=== PATIENT | male | born 1940 | race Caucasian/White ===

== ENCOUNTER 2018-11-29 18:31 | Emergency (ER) | payer MEDICARE, SELFPAY ==
[2018-11-29 18:32] VITALS: BP 156/78; PULSE 111; RESP 16; TEMP 36.6; O2SAT 98; BMI 21.7
--- NOTE | 2018-11-29 19:13 | ED.DCSUM_ITS ---
- ER Visit Summary Date of Service: 11/29/18 Chief Complaint: Shingles History of Present Illness: The patient is a 78 M who presents complaining of shingles. Patient states that he was outside shoveling snow today. When he came inside he began having very itchy rash that he describes as shingles. He is having itching around his neck, bilateral armpits, chest, back. He states that he had shingles 4 years ago and has it intermittently. He was once put on a medication by Dr. Llanes that he thinks was prednisone but it made him feel crazy. Patient denies any fever, chest pain, shortness of breath, cough, wheezing, abdominal pain, nausea or vomiting, lightheadedness or dizziness, or any other complaints other than the rash. He states he did have a brief 1 hour episode of the rash last night that resolved. It came back this afternoon. Patient has history of hypertension and high cholesterol. Physical Examination: Vital signs: afebrile, hemodynamically stable, no hypoxia on room air General: well nourished, well developed, in no distress Skin: warm, dry, no pallor, urticarial rash on the chest, back, base of the neck, bilateral arms, bilateral legs, abdomen, sparing the face, palms and soles HEENT: normocephalic and atraumatic; PERRL, EOMI, moist mucous membranes Cardiovascular: regular rate and rhythm without murmurs, no peripheral edema, 2+ pulses all distal extremities Respiratory: No increased work of breathing, lungs are clear to auscultation bilaterally, no rales, rhonchi or wheezing Abdominal: Abdomen is soft, nontender with normoactive bowel sounds, no guarding or rebound, no masses MSK: Moves all extremities, no deformities, normal strength Neuro: Awake and alert, oriented ?4. No facial droop, sensation and motor function intact and symmetric Test Results: [] Emergency Department Course and Treatment: Patient's physical examination is most consistent with urticaria of unknown cause. Patient states he has had a bad reaction to prednisone in the past, thus prednisone not given. He has an appointment with Dr. Llanes at 11 AM tomorrow. Thus patient was given a home dose of Benadryl to take when he gets home tonight, with very specific precautions since it may make him sleepy, dizzy or feel loopy. He will not take any in the morning as he has to drive to his doctor's appointment. Patient not given a dose in the emergency department as he is driving home from here as well. Patient has no findings concerning for anaphylactic reaction. Further treatment will be pending evaluation by Dr. Llanes. Patient agreed with this plan was discharged home. Treatment Plan: [] Disposition: [] Impression: Urticarial rash This note was generated with [employer] dictation software. It may contain incorrect words, spelling, and punctuation that were not noted in review of the chart prior to signing ED Disposition - Plan for ED Patient: Disposition: Home or Assisted Living Chief Complaint: Rash Instructions: ED Urticaria Referrals: Clement Llanes III, MD [Primary Care Provider] - 1 Day Additional Instructions: You may take a dose of Benadryl prior to going to bed tonight. This will help with itching. It may make you sleepy or dizzy, so be very careful if you get out of bed to walk around. Do not drive or do any other activities that would be dangerous while taking this medication. Keep your appointment with Dr. Llanes tomorrow morning. If you develop any trouble breathing, dizziness or lightheadedness, abdominal pain, nausea or vomiting, or any other concerning symptoms, return immediately to the emergency department for another evaluation.
[2018-11-29 19:22] VITALS: RESP 18
[2018-11-29] MEDS: DiphenhydrAMINE 25 MG Capsule PO ×2 (19:22)
--- OUTSIDE RECORDS SUMMARY | 2019-02-01 05:25 | XMS RPT_ITS ---
:1940 Author Organization [facility] Care Team Providers Name Role Phone CLEMENT LLANES III Referring Unavailable CEBUL III, CLEMENT Villeda Attending Unavailable CEBUL III, CLEMENT Villeda Referring Unavailable CEBUL III, CLEMENT Villeda Referring Unavailable CEBUL III, CLEMENT Villeda Attending Unavailable CEBUL III, CLEMENT Villeda Referring Unavailable CEBUL III, CLEMENT Villeda Referring Unavailable CEBUL III, CLEMENT Villeda Referring Unavailable Cebul III, Clement Primary Care Unavailable Lelo Ivory Attending Unavailable PROBLEMS PROBLEMS DATE TYPE CONDITION / CODE ATTENDING STATUS SOURCE 12/01/2018 Active Thyrotoxicosis, 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 [facility] [employer] without thyrotoxic Repository crisis or storm / E05.90(ICD-10) 11/30/2018 Active Tachycardia, NA 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 / [facility] [employer] R00.0(ICD-10) Repository 12/22/2016 Active Essential NA Active [facility] (primary) [facility] [employer] hypertension / Repository I10(ICD-10) 05/21/2015 Active Hyperlipidemia, NA 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 / [facility] [employer] E78.5(ICD-10) Repository PROCEDURES PROCEDURES No Procedure Records FoundRESULTS RESULTS PROGRESS Observed: 12/02/2018 Status: COMPLETED Source: [facility] 7:21 PM [facility] RE[facility]IT[facility] HNO ID: [id number] Author: Clement Llanes III Service: (none) Author Type: Physician Type: Progress Notes Filed: 12/02/2018 7:21 PM Note Text: The very high T3 confirms the presence of hyperthyroidism. This likely is causing rapid heartbeat. The metoprolol should help to control the heart rate. Await the results of the thyroid scan. Clement Llanes III, MD, FAAFP PROGRESS Observed: 12/01/2018 Status: COMPLETED Source: [place] 2:38 PM [facility] REPOSITORY HNO ID: [id number] Author: Clement Llanes III Service: (none) Author Type: Physician Type: Progress Notes Filed: 12/01/2018 2:38 PM Note Text: This is very concerning for the diagnosis of hyperthyroidism. I will order a serum T3 and also thyroid scan. SHABNAM Li MD Observed: 12/01/2018 Status: COMPLETED Source: [facility] 12:00 AM [facility]IT[facility] MANUEL LAWRENCE ([id number]) 1940 M Date Time Provider Department 12/01/18 ZARIA HAQUE, CLEMENT [facility]illeda [facility] During your visit today, we recorded the following information about you: Camille Hall CMA, MA 12/01/2018 4:38 PM Signed ----- Message from Clement Llanes III sent at 12/01/2018 2:38 PM EST ----- This is very concerning for the diagnosis of hyperthyroidism. I will order a serum T3 and also thyroid scan. SHABNAM Li MD, CMA, MA 12/01/2018 4:44 PM Signed Detailed message left for patient. Information sent to [facility]. AALIYAH Duran LPN 12/02/2018 9:28 AM Signed Pt called back to go over information. Reviewed below with pt and advised him this nurse would set up appt at [facility] for him. Called pt back to inform him appt is 12/06/18 at 9:15 for the injection and he must return at 1:15 for the scan then go back 12/07/18 at 8:45 for second scan. Pt verbalizes understanding of instructions. Pt will come to lab today to complete lab work. Saul New LPN Allergies As of Date: 12/01/2018 Noted Allergy Reaction NO KNOWN DRUG ALLERGIES 11/04/2005 Date Reviewed: 11/30/2018 Reviewed by: Bhavana France Ma - Fully Assessed Reason for Visit: Results [95] Prescriptions as of 12/01/2018 Sig: METOPROLOL SUCCINATE ER 25 MG* Take 1 tablet by mouth once d* ATORVASTATIN 40 MG TABLET Take 1 tablet by mouth once d* LISINOPRIL 10 MG-HYDROCHLOROT* Take 1 tablet by mouth every * ASPIRIN 81 MG TABLET,DELAYED * Take 1 tablet by mouth once d* Problem List As Of Date 12/01/2018 Noted Resolved Disorders of bursae and tendons in shoulder reg*INVALID FOR*10/18/2015 Tobacco abuse [Z72.0] INVALID FOR* Hyperlipidemia LDL goal <130 [E78.5] INVALID FOR* Arteriosclerosis of carotid artery [I65.29] INVALID FOR* HZV (herpes zoster virus) post herpetic neuralg*INVALID FOR* Benign hypertension [I10] 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 [Z79.82] INVALID FOR* Weakness [R53.1] INVALID FOR*02/04/2018 Encounter Status:Closed by CAMILLE HALL CMA on 12/01/18 FREE T4 Collected: 11/30/2018 Status: F Source: [place] 11:58 AM [facility] REPOSITORY TYPE CODE TESTS RESULT OUT OF RANGE REFERENCE UNITS LAB FT4 0.9-1.7 ng/dL Free T4 1.7 Performed By: #### FT4, TSH #### [facility] [employer] [address] [id number] TSH Collected: 11/30/2018 Status: F Source: [facility] 11:58 AM [facility] REPOSITORY TYPE CODE TESTS RESULT OUT OF RANGE REFERENCE UNITS LAB TSH 0.400-5.500 uU/mL Low TSH 0.009 Performed By: #### FT4, TSH #### [facility] [employer] [address] [address] T3 Collected: 11/30/2018 Status: F Source: [facility] 11:58 AM [facility] REPOSITORY TYPE CODE TESTS RESULT OUT OF RANGE REFERENCE UNITS LAB T3 79-165 ng/dL High T3 182 Performed By: #### T3 #### [facility] [address] [place], [place] [address] EKG1 Observed: 11/30/2018 Status: F Source: [facility] 11:26 AM [facility] REPOSITORY NAME : MANUEL LAWRENCE PID : [id number] : 1940 Gender : Male Race : ORD : Procedure Date : Nov 30 2018 11:26:23 Edit Date : Dec 01 2018 08:35:35 Diagnosis:SINUS TACHYCARDIA OTHERWISE NORMAL ECG Confirmed by MD CHAWLA GREGORY () on 12/01/2018 8:35:28 AM Ventricular Rate : 113 BPM Atrial Rate : 113 BPM P-R Interval : 144 ms QRS Duration : 78 ms Q-T Interval : 306 ms QTC Calculation(Bezet) : 419 ms P [place] : 83 degrees R [place] : 21 degrees T [place] : 66 degrees Test Reason : Location : 185 : [facility] Overread By : MD CHAWLA GREGORY Edited By : MD CHAWLA GREGORY Referred By : CLEMENT LLANES Acquired by : AUSTIN CAMARGO Observed: 11/30/2018 Status: COMPLETED Source: [place] 11:00 AM [facility] REPOSITORY Office Visit ([facility]) MANUEL LAWRENCE ([id number]) 1940 M Date Time Provider Department 11/30/18 11:00 AM LCEMENT LLANES III [facility] During your visit today, we recorded the following information about you: Temperature Pulse Respiration Blood pressure 96.9 degrees 120/minute 12/minute 114/76 Weight Height 68 kg 1.74 m Clement Llanes III MD 11/30/2018 11:45 AM Signed SUBJECTIVE: Chief Complaint: Manuel Lawrence is a 78 year old male who presents for annual comprehensive problem evaluation. New concerns today include 1. hypertension 2. hyperlipidemia 3. yesterday he developed pruritic, generalized, pinpoint red macular eruption on torso, extremities. Seen in ER with dx of nerves. Given benadryl 25mg which resolved the itch and the rash, though it caused a foul taste. Reviewed ER visit note. VS reported as normal. 4. notes tremor in hands for several yrs. Notes mostly in R hand. 5. rapid heart rate noted on exam today. Pt had 2 cups coffee prior to office visit 6. tobacco use disorder--smokes 1 pack /wk. Not ready to commit to quit Exercises regularly Minimal exercise associated with work or ADL's Cholesterol screening up to date Yes Current Outpatient Prescriptions on File Prior to Visit: atorvastatin (LIPITOR) 40 mg tablet TAKE ONE TABLET BY MOUTH ONCE DAILY lisinopril-hydrochlorothiazide (PRINZIDE,ZESTORETIC) 10-12.5 mg per tablet TAKE ONE TABLET BY MOUTH EVERY MORNING aspirin, enteric coated (ASPIRIN, ENTERIC COATED) 81 mg EC tablet Take 1 tablet by mouth once daily. No current facility-administered medications on file prior to visit. PAST MEDICAL HISTORY Diagnosis Date - Arteriosclerosis of carotid artery 05/25/2015 - Tobacco abuse 08/16/2012 PAST SURGICAL HISTORY Procedure Laterality Date - INSERT CATH,ART,PERCUT,SHORTTERM - PAST SURGICAL HISTORY OF 1969? Ruptured sweat gland right upper eyelid - REPAIR ING HERNIA,5+Y/O,REDUCIBL Hernia repair, inguinal, right - THROMBOENDARTECTMY NECK,NECK INCIS Right 06-18-15 FAMILY HISTORY Problem Relation Age of Onset - Cataract Father - Cancer Father bladder cancer - Cancer Brother lung cancer - Breast Cancer Sister - other (endometrial cancer [Other]) Sister Social History Marital status: Spouse name: Years of education: Number of children: Social History Main Topics Smoking status: Current Every Day Smoker Packs/day: 0.50 Years: 50.00 Types: Cigarettes Start date: 06/05/2010 Smokeless tobacco: Never Used Comment: smokes 1 pk. a week Alcohol use: Yes Comment: rare Drug use: No Immunization History Administered Date(s) Administered Influenza Seasonal Inj Quadrivalent Age 3+ 09/11/2017 Pneumococcal-13 Vac Conjugate 05/21/2015 Pneumovax 03/19/2011 Zostavax 10/18/2015 ACTIVE PROBLEM LIST Tobacco Abuse Hyperlipidemia Ldl Goal <130 Arteriosclerosis of Carotid Artery Hzv (Herpes Zoster Virus) Post Herpetic Neuralgia Benign Hypertension Custodial (Current) Use of Aspirin REVIEW OF SYSTEMS General: Denies fever, chills, night sweats, or changes in weight. Dermatologic: Denies any new skin conditions, rashes or changing moles. Eyes: ENT: Respiratory: Denies any cough, dyspnea, or wheezing. Cardiovascular: Denies any chest pain with exertion or at rest, palpitations, syncope, or edema. Gastrointestinal: Denies any nausea, vomiting, abdominal pain, heartburn, changes in bowel habit, Denies any rectal bleeding. Genitourinary: Denies Denies problems with urinary stream., Denies dysuria, frequency, urgency, incontinence, erectile dysfunction, hematuria and nocturia. Musculoskeletal: Denies any joint swelling, crepitus, joint pain, or loss of range of motion., Denies back pain. Neurologic: Denies any headaches, tremors, dizziness, vertigo, memory loss, confusion., Denies weakness, numbness or tingling. Psychiatric: Denies any sleeping problems, history of abuse, marital discord., Denies any anxiety or depression. Hematologic/Lymphatic/Immunologic: Denies anemia, bruising, bleeding abnormalities. Endocrine: Denies any heat or cold intolerance, polyuria or polydipsia. OBJECTIVE: PHYSICAL EXAMINATION: BP 114/76 Pulse 120 Temp 36.1 ?C (96.9 ?F) (Left Tympanic) Resp 12 Ht 174 cm (5' 8.5) Wt 68 kg (150 lb) BMI 22.47 kg/m? GENERAL APPEARANCE Well appearing, alert, in no acute distress, well-hydrated, well nourished. SKIN: Skin color, texture, turgor normal, no suspicious rashes or lesions HEAD: No significant findings. EYES: EARS: NOSE/SINUSES: OROPHARYNX: NECK: Supple, no lymphadenopathy, normal thyroid, no carotid bruits and no JVD BACK: Back symmetric, Normal curvature, No CVAT. LUNGS: normal pulmonary exam and clear to auscultation and percussion HEART: Normal PMI, Regular rate and rhythm, Normal heart sounds, S1 and S2 and No murmurs. BREASTS: ABDOMEN: Soft, Non-tender, No palpable masses and No hepatosplenomegaly. EXTREMTIES: extremities normal, no deformities, no skin discoloration, no edema, normal pulses bilaterally. NEURO: Awake, alert and oriented x 3, Normal gait, No involuntary motions., muscle tone normal, muscle strength normal GENITALIA: Penis normal, no urethral discharge, scrotum normal to palpation, no hernias RECTAL: Anus normal, no anorectal masses, Prostate normal size, consistency, no nodules, and no tenderness, prostate 3/4 spongy, smooth ASSESSMENT: hypertension--at goal prickly heat--resolving hyperlipidemia sinus tachycardia--?due to coffee essential tremor dry skin tobacco use disorder PLAN: healthy diet and stay active use moisturizing cream to dry skin add toprol XL 25mg daily same other medications nurse visit in 2 wks --check BP and pulse labs as ordered SHABNAM Li MD, III MD 11/30/2018 11:44 AM Signed PLAN: healthy diet and stay active use moisturizing cream to dry skin add toprol XL 25mg daily same other medications nurse visit in 2 wks --check BP and pulse Clement Llanes III MD Referring Provider: SELF [200] Allergies As of Date: 11/30/2018 Noted Allergy Reaction NO KNOWN DRUG ALLERGIES 11/04/2005 Date Reviewed: 11/30/2018 Reviewed by: Bhavana France Ma - Fully Assessed Reason for Visit: Yearly Exam [187] Primary Visit Diagnosis:Sinus tachycardia [R00.0] Other Visit Diagnoses:Tachycardia [R00.0] Benign hypertension [I10] Hyperlipidemia LDL goal <130 [E78.5] Benign essential tremor [G25.0] Prickly heat [L74.0] Tobacco abuse [Z72.0] Order(s):ECG COMPLETE W INTERPRETATION [ECG01] Order #: [id number] FUTURE COMPLETE ECG [7046397] Order #: [id number]. #:[id number]--[id number]: 1 metoprolol succinate ER (TOPROL XL) 25 mg 24 hr tabletTake 1 tablet by mouth once daily.Disp: 30 tabletRfl: 11 atorvastatin (LIPITOR) 40 mg tabletTake 1 tablet by mouth once daily.Disp: 90 tabletRfl: 3 lisinopril-hydrochlorothiazide (PRINZIDE,ZESTORETIC) 10-12.5 mg per tabletTake 1 tablet by mouth every morning.Disp: 90 tabletRfl: 3 TSH BLD [SQTSH] Order #: [id number] FUTURE T4 FREE/FREE THYROX [SQFT4] Order #: [id number] FUTURE Prescriptions as of 11/30/2018 Sig: ATORVASTATIN 40 MG TABLET Take 1 tablet by mouth once d* LISINOPRIL 10 MG-HYDROCHLOROT* Take 1 tablet by mouth every * ASPIRIN 81 MG TABLET,DELAYED * Take 1 tablet by mouth once d* METOPROLOL SUCCINATE ER 25 MG* Take 1 tablet by mouth once d* Problem List As Of Date 11/30/2018 Noted Resolved Disorders of bursae and tendons in shoulder reg*INVALID FOR*10/18/2015 Tobacco abuse [Z72.0] INVALID FOR* Hyperlipidemia LDL goal <130 [E78.5] INVALID FOR* Arteriosclerosis of carotid artery [I65.29] INVALID FOR* HZV (herpes zoster virus) post herpetic neuralg*INVALID FOR* Benign hypertension [I10] INVALID FOR* senior care (current) use of aspirin [Z79.82] INVALID FOR* Weakness [R53.1] INVALID FOR*02/04/2018 Other instructions from your clinician: PLAN: healthy diet and stay active use moisturizing cream to dry skin add toprol XL 25mg daily same other medications nurse visit in 2 wks --check BP and pulse Clement Llanes III MD Prescriptions ordered this encounter Disp Refills Start End METOPROLOL SUCCINATE ER 25 MG TABLET* 30 t* 11 11/30/2018 Route: ORAL Sig: Take 1 tablet by mouth once daily. ATORVASTATIN 40 MG TABLET 90 t* 3 11/30/2018 Route: ORAL Sig: Take 1 tablet by mouth once daily. LISINOPRIL 10 MG-HYDROCHLOROTHIAZIDE* 90 t* 3 11/30/2018 Route: ORAL Sig: Take 1 tablet by mouth every morning. Medications Discontinued During This Encounter atorvastatin (LIPITOR) 40 mg tablet 90 t* 0 11/01/2018 11/30/2018 Cmt: This prescription was filled on 11/01/2018. Any refills authorized will be placed on file. Sig: TAKE ONE TABLET BY MOUTH ONCE DAILY Disc: Reason for discontinue is not on file. lisinopril-hydrochlorothiazide (PRIN* 30 t* 11 01/20/2018 11/30/2018 Sig: TAKE ONE TABLET BY MOUTH EVERY MORNING Disc: Reason for discontinue is not on file. Encounter Status:Closed by CLEMENT LLANES III, MD on 11/30/18 PROGRESS Observed: 11/30/2018 Status: COMPLETED Source: [place] 10:57 AM [facility] REPOSITORY HNO ID: [id number] Author: Clement Llanes III Service: (none) Author Type: Physician Type: Progress Notes Filed: 11/30/2018 11:45 AM Note Text: SUBJECTIVE: Chief Complaint: Manuel Lawrence is a 78 year old male who presents for annual comprehensive problem evaluation. New concerns today include 1. hypertension 2. hyperlipidemia 3. yesterday he developed pruritic, generalized, pinpoint red macular eruption on torso, extremities. Seen in ER with dx of nerves. Given benadryl 25mg which resolved the itch and the rash, though it caused a foul taste. Reviewed ER visit note. VS reported as normal. 4. notes tremor in hands for several yrs. Notes mostly in R hand. 5. rapid heart rate noted on exam today. Pt had 2 cups coffee prior to office visit 6. tobacco use disorder--smokes 1 pack /wk. Not ready to commit to quit Exercises regularly Minimal exercise associated with work or ADL's Cholesterol screening up to date Yes Current Outpatient Prescriptions on File Prior to Visit: atorvastatin (LIPITOR) 40 mg tablet TAKE ONE TABLET BY MOUTH ONCE DAILY lisinopril-hydrochlorothiazide (PRINZIDE,ZESTORETIC) 10-12.5 mg per tablet TAKE ONE TABLET BY MOUTH EVERY MORNING aspirin, enteric coated (ASPIRIN, ENTERIC COATED) 81 mg EC tablet Take 1 tablet by mouth once daily. No current facility-administered medications on file prior to visit. PAST MEDICAL HISTORY Diagnosis Date - Arteriosclerosis of carotid artery 05/25/2015 - Tobacco abuse 08/16/2012 PAST SURGICAL HISTORY Procedure Laterality Date - INSERT CATH,ART,PERCUT,SHORTTERM - PAST SURGICAL HISTORY OF 1969? Ruptured sweat gland right upper eyelid - REPAIR ING HERNIA,5+Y/O,REDUCIBL Hernia repair, inguinal, right - THROMBOENDARTECTMY NECK,NECK INCIS Right 8-10-15 FAMILY HISTORY Problem Relation Age of Onset - Cataract Father - Cancer Father bladder cancer - Cancer Brother lung cancer - Breast Cancer Sister - other (endometrial cancer [Other]) Sister Social History Marital status: Spouse name: Years of education: Number of children: Social History Main Topics Smoking status: Current Every Day Smoker Packs/day: 0.50 Years: 50.00 Types: Cigarettes Start date: 06/05/2010 Smokeless tobacco: Never Used Comment: smokes 1 pk. a week Alcohol use: Yes Comment: rare Drug use: No Immunization History Administered Date(s) Administered Influenza Seasonal Inj Quadrivalent Age 3+ 09/11/2017 Pneumococcal-13 Vac Conjugate 05/21/2015 Pneumovax 03/19/2011 Zostavax 10/18/2015 ACTIVE PROBLEM LIST Tobacco Abuse Hyperlipidemia Ldl Goal <130 Arteriosclerosis of Carotid Artery Hzv (Herpes Zoster Virus) Post Herpetic Neuralgia Benign Hypertension Custodial (Current) Use of Aspirin REVIEW OF SYSTEMS General: Denies fever, chills, night sweats, or changes in weight. Dermatologic: Denies any new skin conditions, rashes or changing moles. Eyes: ENT: Respiratory: Denies any cough, dyspnea, or wheezing. Cardiovascular: Denies any chest pain with exertion or at rest, palpitations, syncope, or edema. Gastrointestinal: Denies any nausea, vomiting, abdominal pain, heartburn, changes in bowel habit, Denies any rectal bleeding. Genitourinary: Denies Denies problems with urinary stream., Denies dysuria, frequency, urgency, incontinence, erectile dysfunction, hematuria and nocturia. Musculoskeletal: Denies any joint swelling, crepitus, joint pain, or loss of range of motion., Denies back pain. Neurologic: Denies any headaches, tremors, dizziness, vertigo, memory loss, confusion., Denies weakness, numbness or tingling. Psychiatric: Denies any sleeping problems, history of abuse, marital discord., Denies any anxiety or depression. Hematologic/Lymphatic/Immunologic: Denies anemia, bruising, bleeding abnormalities. Endocrine: Denies any heat or cold intolerance, polyuria or polydipsia. OBJECTIVE: PHYSICAL EXAMINATION: BP 114/76 Pulse 120 Temp 36.1 ?C (96.9 ?F) (Left Tympanic) Resp 12 Ht 174 cm (5' 8.5) Wt 68 kg (150 lb) BMI 22.47 kg/m? GENERAL APPEARANCE Well appearing, alert, in no acute distress, well-hydrated, well nourished. SKIN: Skin color, texture, turgor normal, no suspicious rashes or lesions HEAD: No significant findings. EYES: EARS: NOSE/SINUSES: OROPHARYNX: NECK: Supple, no lymphadenopathy, normal thyroid, no carotid bruits and no JVD BACK: Back symmetric, Normal curvature, No CVAT. LUNGS: normal pulmonary exam and clear to auscultation and percussion HEART: Normal PMI, Regular rate and rhythm, Normal heart sounds, S1 and S2 and No murmurs. BREASTS: ABDOMEN: Soft, Non-tender, No palpable masses and No hepatosplenomegaly. EXTREMTIES: extremities normal, no deformities, no skin discoloration, no edema, normal pulses bilaterally. NEURO: Awake, alert and oriented x 3, Normal gait, No involuntary motions., muscle tone normal, muscle strength normal GENITALIA: Penis normal, no urethral discharge, scrotum normal to palpation, no hernias RECTAL: Anus normal, no anorectal masses, Prostate normal size, consistency, no nodules, and no tenderness, prostate 3/4 spongy, smooth ASSESSMENT: hypertension--at goal prickly heat--resolving hyperlipidemia sinus tachycardia--?due to coffee essential tremor dry skin tobacco use disorder PLAN: healthy diet and stay active use moisturizing cream to dry skin add toprol XL 25mg daily same other medications nurse visit in 2 wks --check BP and pulse labs as ordered Clement Llanes III MD EMERGENCY DEPARTMENT Observed: 11/29/2018 Status: F Source: [place] SUMMARY 9:12 PM [facility] REPOSITORY [facility] Medical Records Department [address] [place] [address] Emergency Department Summary 11/29/181909 MR#: [id number] Acct: [id number] Name: MANUEL LAWRENCE Rep #: [id number] : 1940 78 From: Lelo Ivory MD PCP: Clement Llanes III, MD Status: DEP ER - ER Visit Summary Date of Service: 11/29/18 Chief Complaint: Shingles History of Present Illness: The patient is a 78 M who presents complaining of shingles. Patient states that he was outside shoveling snow today. When he came inside he began having very itchy rash that he describes as shingles. He is having itching around his neck, bilateral armpits, chest, back. He states that he had shingles 4 years ago and has it intermittently. He was once put on a medication by Dr. Llanes that he thinks was prednisone but it made him feel crazy. Patient denies any fever, chest pain, shortness of breath, cough, wheezing, abdominal pain, nausea or vomiting, lightheadedness or dizziness, or any other complaints other than the rash. He states he did have a brief 1 hour episode of the rash last night that resolved. It came back this afternoon. Patient has history of hypertension and high cholesterol. Physical Examination: Vital signs: afebrile, hemodynamically stable, no hypoxia on room air General: well nourished, well developed, in no distress Skin: warm, dry, no pallor, urticarial rash on the chest, back, base of the neck, bilateral arms, bilateral legs, abdomen, sparing the face, palms and soles HEENT: normocephalic and atraumatic; PERRL, EOMI, moist mucous membranes Cardiovascular: regular rate and rhythm without murmurs, no peripheral edema, 2+ pulses all distal extremities Respiratory: No increased work of breathing, lungs are clear to auscultation bilaterally, no rales, rhonchi or wheezing Abdominal: Abdomen is soft, nontender with normoactive bowel sounds, no guarding or rebound, no masses MSK: Moves all extremities, no deformities, normal strength Neuro: Awake and alert, oriented 4. No facial droop, sensation and motor function intact and symmetric Test Results: [] Emergency Department Course and Treatment: Patient's physical examination is most consistent with urticaria of unknown cause. Patient states he has had a bad reaction to prednisone in the past, thus prednisone not given. He has an appointment with Dr. Llanes at 11 AM tomorrow. Thus patient was given a home dose of Benadryl to take when he gets home tonight, with very specific precautions since it may make him sleepy, dizzy or feel loopy. He will not take any in the morning as he has to drive to his doctor's appointment. Patient not given a dose in the emergency department as he is driving home from here as well. Patient has no findings concerning for anaphylactic reaction. Further treatment will be pending evaluation by Dr. Llanes. Patient agreed with this plan was discharged home. Treatment Plan: [] Disposition: [] Impression: Urticarial rash This note was generated with [employer] dictation software. It may contain incorrect words, spelling, and punctuation that were not noted in review of the chart prior to signing ED Disposition - Plan for ED Patient: Disposition: Home or Assisted Living Chief Complaint: Rash Instructions: ED Urticaria Referrals: Clement Llanes III, MD [Primary Care Provider] - 1 Day Additional Instructions: You may take a dose of Benadryl prior to going to bed tonight. This will help with itching. It may make you sleepy or dizzy, so be very careful if you get out of bed to walk around. Do not drive or do any other activities that would be dangerous while taking this medication. Keep your appointment with Dr. Llanes tomorrow morning. If you develop any trouble breathing, dizziness or lightheadedness, abdominal pain, nausea or vomiting, or any other concerning symptoms, return immediately to the emergency department for another evaluation. What to do if you have Problems For any increased pain, shortness of breath, bleeding, nausea or vomiting, chest pain, or any unexpected problems, contact your Primary Care Provider. Call [facility] ([phone]) or report to the closest Emergency Room. Call 911 if necessary. 11/29/182111 <Electronically signed by Lelo Ivory MD> Date Lelo Ivory MD Cosigner Signature (If Indicated): Date CC: Clement Llanes III, MD DISCHARGE INSTRUCTION Observed: 11/29/2018 Status: F Source: [place] 9:10 PM [facility] REPOSITORY [facility] Medical Records Department [address] [place] [address] Discharge Instruction 11/29/181912 MR#: [id number] Acct: [id number] Name: MANUEL LAWRENCE Rep #: [id number] : 1940 78 From: Lelo Ivory MD PCP: Clement Llanes III, MD Status: [facility] ER ED Disposition - Plan for ED Patient: Disposition: Home or Assisted Living Chief Complaint: Rash Instructions: ED Urticaria Referrals: Clement Llanes III, MD [Primary Care Provider] - 1 Day Additional Instructions: You may take a dose of Benadryl prior to going to bed tonight. This will help with itching. It may make you sleepy or dizzy, so be very careful if you get out of bed to walk around. Do not drive or do any other activities that would be dangerous while taking this medication. Keep your appointment with Dr. Llanes tomorrow morning. If you develop any trouble breathing, dizziness or lightheadedness, abdominal pain, nausea or vomiting, or any other concerning symptoms, return immediately to the emergency department for another evaluation. What to do if you have Problems For any increased pain, shortness of breath, bleeding, nausea or vomiting, chest pain, or any unexpected problems, contact your Primary Care Provider. Call [facility] ([phone]) or report to the closest Emergency Room. Call 911 if necessary. 11/29/182109 <Electronically signed by Lelo Ivory MD> Date Lelo Ivory MD Cosigner Signature (If Indicated): Date CC: Clement Llanes III, MD BASIC METABOLIC PANL Collected: 11/10/2018 Status: F Source: [place] 7:47 AM [facility] REPOSITORY TYPE CODE TESTS RESULT OUT OF REFERENCE UNITS RANGE LAB GLU 74-99 mg/dL Glucose 92 Result Comment: The [place] Diabetes Association (ADA) provides guidance for cutoff values for fasting glucose and random glucose. The ADA defines fasting as no caloric intake for at least 8 hours. Fas ting plasma glucose results between 100 to 125 mg/dL indicate increased risk for diabetes (prediabetes). Fasting plasma glucose results greater than or equal to 126 mg/dL meet the criteria for diagnosis of diabetes. In the absence of unequivocal hyperglycemia, results should be confirmed by repeat testing. In a patient with classic symptoms of hyperglycemia or hyperglycemic crisis, random plasma glucose results greater than or equal to 200 mg/dL meet the criteria for diagnosis of diabetes. Reference: Standards of Medical Care in Diabetes 2016, [place] Diabetes Association. Diabetes Care. 2016.39(Suppl 1). LAB BUN 9-24 mg/dL BUN 14 LAB CRET 0.73-1.22 mg/dL Creatinine 0.96 LAB NA 136-144 mmol/L Sodium 141 LAB K 3.7-5.1 mmol/L Potassium 4.0 LAB CL 97-105 mmol/L Chloride 104 LAB CO2 22-30 mmol/L CO2 27 LAB AGAP 9-18 mmol/L Anion Gap 10 LAB CA 8.5-10.2 mg/dL Calcium, Total 9.1 LAB GFRAA eGFR- Amer. >60 LAB GFRNAA . eGFR-All Other Races >60 Result Comment: eGFR (Estimated GFR) Units of measure: mL/min/1.73 meters squared eGFR is derived from the reexpressed MDRD Study equation using the following parameters: serum creatinine, age, gender and race. The creatinine assay has been calibrated to be traceable to IDMS. An eGFR <60 mL/min/1.73m2 for >3 months is consistent with chronic kidney disease. Refer to KDOQI guidelines for clinical interpretation. In patients with unstable renal function, e.g. those with acute kidney injury, the eGFR may not accurately reflect actual GFR. Performed By: #### BMP, LIPB #### [facility] [address] [place] [id number] LIPID PANEL, BASIC Collected: 11/10/2018 Status: F Source: [place] 7:47 AM [facility] REPOSITORY TYPE CODE TESTS RESULT OUT OF REFERENCE UNITS RANGE LAB CHOL <200 mg/dL Cholesterol 138 Result Comment: <200 mg/dL, Desirable 200-239 mg/dL, Borderline high >239 mg/dL, High LAB TRIGLY <150 mg/dL Triglyceride 94 Result Comment: <150 mg/dL, Normal 150-199 mg/dL, Borderline high 200-499 mg/dL, High >499 mg/dL, Very high LAB HDL >39 mg/dL HDL-Cholesterol 49 Result Comment: 40-59 mg/dL, Acceptable >59 mg/dL, High: Negative risk factor for coronary heart disease <40 mg/dL, Low: Positive risk factor for coronary heart disease LAB LDL <100 mg/dL LDL-Cholesterol 70 Result Comment: <100 mg/dL, Optimal 100-129 mg/dL, Near optimal/above optimal 130-159 mg/dL, Borderline high 160-189 mg/dL, High >189 mg/dL, Very high Secondary prevention optimal LDL Cholesterol levels are recommended to be < 70 mg/dL LAB NONHDL <130 mg/dL Non HDL Cholesterol 89 Result Comment: <130 mg/dL, Optimal 130-159 mg/dL, Near optimal/above optimal 160-189 mg/dL, Borderline high 190-219 mg/dL, High >219 mg/dL, Very high Secondary prevention optimal non HDL Cholesterol levels are recommended to be < 100 mg/dL LAB FT hrs Fasting Time 13 LAB VLDL <30 mg/dL VLDL Cholesterol 19 LAB TCHDL <5.10 TC:HDL Ratio 2.82 LAB LDLHDL <2.54 LDL:HDL Ratio 1.43 Result Comment: Reference: 1. National Cholesterol Education Program ATP III Guideline At-A-Glance Quick Desk Reference: National Heart, Lung, and Blood [place]. National Institutes of Health. 2001: NIH Publication No. 01-3305. 2. An International Atherosclerosis Society position paper: global recommendations for the management of dyslipidemia: executive summary, Atherosclerosis. 2014: 232(2):410-413. Performed By: #### BMP, LIPB #### [facility] [address] [address] PROGRESS Observed: 02/04/2018 Status: COMPLETED Source: [place] 8:29 AM [facility] REPOSITORY O ID: [id number] Author: Clement Llanes III Service: (none) Author Type: Physician Type: Progress Notes Filed: 02/04/2018 8:55 AM Note Text: SUBJECTIVE: This is a 77 year old male that is here today for 1. skin lesion L scalp 2. episodic vertigo with quick head movt. Infrequent. No lightheadedness 3. still smoking, but down to 1 pack per wk. Denies cough, KOEHLER. Walks daily w/o chest pain, angina, KOEHLER 4. He still has occasional postherpetic neuralgia but does not require medication treatment for this. PAST MEDICAL HISTORY Diagnosis Date - Arteriosclerosis of carotid artery 05/25/2015 - Tobacco abuse 08/16/2012 Current Outpatient Prescriptions on File Prior to Visit: lisinopril-hydrochlorothiazide (PRINZIDE,ZESTORETIC) 10-12.5 mg per tablet TAKE ONE TABLET BY MOUTH EVERY MORNING atorvastatin (LIPITOR) 40 mg tablet Take 1 tablet by mouth once daily (for cholesterol) aspirin, enteric coated (ASPIRIN, ENTERIC COATED) 81 mg EC tablet Take 1 tablet by mouth once daily. No current facility-administered medications on file prior to visit. FAMILY HISTORY Problem Relation Age of Onset - Cataract Father - Cancer Father bladder cancer - Cancer Brother lung cancer - Breast Cancer Sister - endometrial cancer [Other] [OTHER] Sister Social History Substance Use Topics - Smoking status: Current Every Day Smoker Packs/day: 0.50 Years: 50.00 Types: Cigarettes Start date: 06/05/2010 - Smokeless tobacco: Never Used Comment: smokes 1 pk. a week - Alcohol use Yes Comment: rare BP 123/68 Pulse 74 Resp 16 Wt 66.2 kg (146 lb) BMI 21.88 kg/m2 . OBJECTIVE: APPEARANCE Well appearing, alert, in no acute distress, well-hydrated, well nourished. NECK Supple, no adenopathy; thyroid symmetric, normal size, no bruits HEART RRR with normal S1 and S2, no murmurs, no gallops, no JVD appreciated LUNG clear to auscultation SKIN 5 mm x 5 mm pigmented odalys ker L scalp in hair part line. No bleeding Lab Results for MANUEL LAWRENCE ( ) as of 02/04/2018 08:35 Ref. Range 01/21/2018 07:54 Sodium Latest Ref Range: 136 - 144 mmol/L 141 Potassium Latest Ref Range: 3.7 - 5.1 mmol/L 4.0 Chloride Latest Ref Range: 97 - 105 mmol/L 102 CO2 Latest Ref Range: 22 - 30 mmol/L 27 BUN Latest Ref Range: 9 - 24 mg/dL 12 Creatinine Latest Ref Range: 0.73 - 1.22 mg/dL 1.02 Glucose Latest Ref Range: 74 - 99 mg/dL 79 Protein, Total Latest Ref Range: 6.3 - 8.0 g/dL 6.9 Calcium Latest Ref Range: 8.5 - 10.2 mg/dL 9.0 Albumin Latest Ref Range: 3.9 - 4.9 g/dL 4.0 Bilirubin, Total Latest Ref Range: 0.2 - 1.3 mg/dL 0.5 Alkaline Phosphatase Latest Ref Range: 36 - 108 U/L 73 ALT Latest Ref Range: 10 - 54 U/L 23 AST Latest Ref Range: 14 - 40 U/L 25 Anion Gap Latest Ref Range: 9 - 18 mmol/L 12 eGFR- Unknown >60 eGFR-All Other Races Latest Units: . >60 Cholesterol, Total Latest Ref Range: <200 mg/dL 153 Triglyceride Latest Ref Range: <150 mg/dL 100 Fasting Time Latest Units: hrs 14 HDL Cholesterol Latest Ref Range: >39 mg/dL 55 LDL Cholesterol Latest Ref Range: <100 mg/dL 78 VLDL Cholesterol Latest Ref Range: <30 mg/dL 20 TC:HDL Ratio Latest Ref Range: <5.10 2.78 LDL:HDL Ratio Latest Ref Range: <2.54 1.42 Non HDL Cholesterol Latest Ref Range: <130 mg/dL 98 ASSESSMENT: seborrheic keratosis, scalp hypertension--at goal hyperlipidemia--at goal Postherpetic neuralgia Tobacco use PLAN: reassurance notify office if the lesion becomes symptomatic same medications continue with efforts to quit smoking change body positions slowly SHABNAM Li MD, III MD CNOV Observed: 02/04/2018 Status: COMPLETED Source: [place] 8:20 AM [facility] REPOSITORY Office Visit (FAMPWS) MANUEL LAWRENCE ([id number]) 1940 M Date Time Provider Department 02/04/18 8:20 AM CLEMENT LLANES III FAMPWS During your visit today, we recorded the following information about you: Pulse Respiration Blood pressure Weight 74/minute 16/minute 123/68 66.2 kg Clement Llanes III MD 02/04/2018 8:55 AM Signed SUBJECTIVE: This is a 77 year old male that is here today for 1. skin lesion L scalp 2. episodic vertigo with quick head movt. Infrequent. No lightheadedness 3. still smoking, but down to 1 pack per wk. Denies cough, KOEHLER. Walks daily w/o chest pain, angina, OKEHLER 4. He still has occasional postherpetic neuralgia but does not require medication treatment for this. PAST MEDICAL HISTORY Diagnosis Date - Arteriosclerosis of carotid artery 05/25/2015 - Tobacco abuse 08/16/2012 Current Outpatient Prescriptions on File Prior to Visit: lisinopril-hydrochlorothiazide (PRINZIDE,ZESTORETIC) 10-12.5 mg per tablet TAKE ONE TABLET BY MOUTH EVERY MORNING atorvastatin (LIPITOR) 40 mg tablet Take 1 tablet by mouth once daily (for cholesterol) aspirin, enteric coated (ASPIRIN, ENTERIC COATED) 81 mg EC tablet Take 1 tablet by mouth once daily. No current facility-administered medications on file prior to visit. FAMILY HISTORY Problem Relation Age of Onset - Cataract Father - Cancer Father bladder cancer - Cancer Brother lung cancer - Breast Cancer Sister - endometrial cancer [Other] [OTHER] Sister Social History Substance Use Topics - Smoking status: Current Every Day Smoker Packs/day: 0.50 Years: 50.00 Types: Cigarettes Start date: 06/05/2010 - Smokeless tobacco: Never Used Comment: smokes 1 pk. a week - Alcohol use Yes Comment: rare BP 123/68 Pulse 74 Resp 16 Wt 66.2 kg (146 lb) BMI 21.88 kg/m2 . OBJECTIVE: APPEARANCE Well appearing, alert, in no acute distress, well- hydrated, well nourished. NECK Supple, no adenopathy; thyroid symmetric, normal size, no bruits HEART RRR with normal S1 and S2, no murmurs, no gallops, no JVD appreciated LUNG clear to auscultation SKIN 5 mm x 5 mm pigmented odalys ker L scalp in hair part line. No bleeding Lab Results for MANUEL LAWRENCE ( ) as of 02/04/2018 08:35 Ref. Range 01/21/2018 07:54 Sodium Latest Ref Range: 136 - 144 mmol/L 141 Potassium Latest Ref Range: 3.7 - 5.1 mmol/L 4.0 Chloride Latest Ref Range: 97 - 105 mmol/L 102 CO2 Latest Ref Range: 22 - 30 mmol/L 27 BUN Latest Ref Range: 9 - 24 mg/dL 12 Creatinine Latest Ref Range: 0.73 - 1.22 mg/dL 1.02 Glucose Latest Ref Range: 74 - 99 mg/dL 79 Protein, Total Latest Ref Range: 6.3 - 8.0 g/dL 6.9 Calcium Latest Ref Range: 8.5 - 10.2 mg/dL 9.0 Albumin Latest Ref Range: 3.9 - 4.9 g/dL 4.0 Bilirubin, Total Latest Ref Range: 0.2 - 1.3 mg/dL 0.5 Alkaline Phosphatase Latest Ref Range: 36 - 108 U/L 73 ALT Latest Ref Range: 10 - 54 U/L 23 AST Latest Ref Range: 14 - 40 U/L 25 Anion Gap Latest Ref Range: 9 - 18 mmol/L 12 eGFR- Unknown ANDgt;60 eGFR-All Other Races Latest Units: . ANDgt;60 Cholesterol, Total Latest Ref Range: ANDlt;200 mg/dL 153 Triglyceride Latest Ref Range: ANDlt;150 mg/dL 100 Fasting Time Latest Units: hrs 14 HDL Cholesterol Latest Ref Range: ANDgt;39 mg/dL 55 LDL Cholesterol Latest Ref Range: ANDlt;100 mg/dL 78 VLDL Cholesterol Latest Ref Range: ANDlt;30 mg/dL 20 TC:HDL Ratio Latest Ref Range: ANDlt;5.10 2.78 LDL:HDL Ratio Latest Ref Range: ANDlt;2.54 1.42 Non HDL Cholesterol Latest Ref Range: ANDlt;130 mg/dL 98 ASSESSMENT: seborrheic keratosis, scalp hypertension--at goal hyperlipidemia--at goal Postherpetic neuralgia Tobacco use PLAN: reassurance notify office if the lesion becomes symptomatic same medications continue with efforts to quit smoking change body positions SHABNAM Leggett MD, III MD Frank A Cebul, III MD 02/04/2018 8:43 AM Signed PLAN: reassurance notify office if the lesion becomes symptomatic same medications continue with efforts to quit smoking change body positions mariya Llanes III MD Referring Provider: CLEMENT LLNAES III [[id number]] Allergies As of Date: 02/04/2018 Noted Allergy Reaction NO KNOWN DRUG ALLERGIES 11/04/2005 Date Reviewed: 02/04/2018 Reviewed by: Camille (Control Area OperatorYan Hall MA - Fully Assessed Reason for Visit: Check area on head [Other] Primary Visit Diagnosis:Seborrheic keratoses [L82.1] Other Visit Diagnoses:Tobacco abuse [Z72.0] Hyperlipidemia LDL goal <130 [E78.5] Benign hypertension [I10] HZV (herpes zoster virus) post herpetic neuralgia [B02.29] Prescriptions as of 02/04/2018 Sig: LISINOPRIL 10 MG-HYDROCHLOROT* TAKE ONE TABLET BY MOUTH EVER* ATORVASTATIN 40 MG TABLET Take 1 tablet by mouth once d* ASPIRIN 81 MG TABLET,DELAYED * Take 1 tablet by mouth once d* Problem List As Of Date 02/04/2018 Noted Resolved Disorders of bursae and tendons in shoulder reg*INVALID FOR*10/18/2015 Tobacco abuse [Z72.0] INVALID FOR* Hyperlipidemia LDL goal <130 [E78.5] INVALID FOR* Arteriosclerosis of carotid artery [I65.29] INVALID FOR* HZV (herpes zoster virus) post herpetic neuralg*INVALID FOR* Benign hypertension [I10] 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 Disc: Discontinued by Patient Encounter Status:Closed by CLEMENT LLANES III, MD on 02/04/18 PROGRESS Observed: 01/27/2018 Status: COMPLETED Source: [place] 1:34 PM [facility] REPOSITORY HNO ID: [id number] Author: Clement Llanes III Service: (none) Author Type: Physician Type: Progress Notes Filed: 01/27/2018 1:34 PM Note Text: We will discuss lab results at upcoming appointment. Clement Llanes III, MD, FAAFP COMP METABOLIC PANEL Collected: 01/21/2018 Status: F Source: [place] 7:54 AM [facility] REPOSITORY TYPE CODE TESTS RESULT OUT OF REFERENCE UNITS RANGE LAB TP 6.3-8.0 g/dL Protein, Total 6.9 LAB ALB 3.9-4.9 g/dL Albumin 4.0 LAB CA 8.5-10.2 mg/dL Calcium, Total 9.0 LAB TBIL 0.2-1.3 mg/dL Bilirubin, Total 0.5 LAB ALKP 36-108 U/L Alkaline Phosphatase 73 LAB AST 14-40 U/L AST 25 LAB GLU 74-99 mg/dL Glucose 79 Result Comment: The [place] Diabetes Association (ADA) provides guidance for cutoff values for fasting glucose and random glucose. The ADA defines fasting as no caloric intake for at least 8 hours. Fas ting plasma glucose results between 100 to 125 mg/dL indicate increased risk for diabetes (prediabetes). Fasting plasma glucose results greater than or equal to 126 mg/dL meet the criteria for diagnosis of diabetes. In the absence of unequivocal hyperglycemia, results should be confirmed by repeat testing. In a patient with classic symptoms of hyperglycemia or hyperglycemic crisis, random plasma glucose results greater than or equal to 200 mg/dL meet the criteria for diagnosis of diabetes. Reference: Standards of Medical Care in Diabetes 2016, [place] [employer] Association. Diabetes Care. 2016.39(Suppl 1). LAB BUN 9-24 mg/dL BUN 12 LAB CRET 0.73-1.22 mg/dL Creatinine 1.02 LAB NA 136-144 mmol/L Sodium 141 LAB K 3.7-5.1 mmol/L Potassium 4.0 LAB CL 97-105 mmol/L Chloride 102 LAB CO2 22-30 mmol/L CO2 27 LAB AGAP 9-18 mmol/L Anion Gap 12 LAB ALT 10-54 U/L ALT 23 LAB GFRAA eGFR- Amer. >60 LAB GFRNAA . eGFR-All Other Races >60 Result Comment: eGFR (Estimated GFR) Units of measure: mL/min/1.73 meters squared eGFR is derived from the reexpressed MDRD Study equation using the following parameters: serum creatinine, age, gender and race. The creatinine assay has been calibrated to be traceable to IDMS. An eGFR <60 mL/min/1.73m2 for >3 months is consistent with chronic kidney disease. Refer to KDOQI guidelines for clinical interpretation. In patients with unstable renal function, e.g. those with acute kidney injury, the eGFR may not accurately reflect actual GFR. Performed By: #### CMP, LIPB #### [facility] [address] [place], [place] [address] LIPID PANEL, BASIC Collected: 01/21/2018 Status: F Source: [place] 7:54 AM [facility] REPOSITORY TYPE CODE TESTS RESULT OUT OF REFERENCE UNITS RANGE LAB CHOL <200 mg/dL Cholesterol 153 Result Comment: <200 mg/dL, Desirable 200-239 mg/dL, Borderline high >239 mg/dL, High LAB TRIGLY <150 mg/dL Triglyceride 100 Result Comment: <150 mg/dL, Normal 150-199 mg/dL, Borderline high 200-499 mg/dL, High >499 mg/dL, Very high LAB HDL >39 mg/dL HDL-Cholesterol 55 Result Comment: 40-59 mg/dL, Acceptable >59 mg/dL, High: Negative risk factor for coronary heart disease <40 mg/dL, Low: Positive risk factor for coronary heart disease LAB LDL <100 mg/dL LDL-Cholesterol 78 Result Comment: <100 mg/dL, Optimal 100-129 mg/dL, Near optimal/above optimal 130-159 mg/dL, Borderline high 160-189 mg/dL, High >189 mg/dL, Very high Secondary prevention optimal LDL Cholesterol levels are recommended to be < 70 mg/dL LAB NONHDL <130 mg/dL Non HDL Cholesterol 98 Result Comment: <130 mg/dL, Optimal 130-159 mg/dL, Near optimal/above optimal 160-189 mg/dL, Borderline high 190-219 mg/dL, High >219 mg/dL, Very high Secondary prevention optimal non HDL Cholesterol levels are recommended to be < 100 mg/dL LAB FT hrs Fasting Time 14 LAB VLDL <30 mg/dL VLDL Cholesterol 20 LAB TCHDL <5.10 TC:HDL Ratio 2.78 LAB LDLHDL <2.54 LDL:HDL Ratio 1.42 Result Comment: Reference: 1. National Cholesterol Education Program ATP III Guideline At-A-Glance Quick Desk Reference: National Heart, Lung, and Blood [place]. National Institutes of Health. 2001: NIH Publication No. 01-3305. 2. An International Atherosclerosis Society position paper: global recommendations for the management of dyslipidemia: executive summary, Atherosclerosis. 2014: 232(2):410-413. Performed By: #### CMP, LIPB #### [facility] [employer] [address] [id number] ALLERGIES ALLERGIES DATE TYPE / CODE NAME / CODE REACTION SEVERITY SOURCE 11/29/2018 Drug No Known Unknown [facility] Allergy/416 Allergies/Q94077 Hospital [id number](SNOM 0388(RXNORM) [facility]) 11/04/2005 Drug NO KNOWN DRUG [facility] Class/66003 ALLERGIES Main [employer] 1003(SNOMED Repository CT) ENCOUNTERS ENCOUNTERS ADMIT/DISCHARGE ACCOUNT ADMITTING ENCOUNTER LOCATION SOURCE NUMBER CLASS 12/02/2018/12/02/[address] [id number] [employer] Repository 12/01/2018/12/01/19 [id number] Ambulatory [address] Repository 11/30/2018/11/30/19 [id number] Ambulatory [address] Repository 11/30/2018/12/01/19 [id number] Ambulatory [address] Repository 11/29/2018/11/29/19 [id number] Emergency [place] ing:ED Repository 11/10/2018/11/10/19 [id number] Ambulatory [address] Repository 02/04/2018/02/06/20 [id number] Ambulatory [address] Repository 01/21/2018/01/22/20 [id number] Ambulatory [address] Repository PAYERS PAYERS ENCOUNTER GUARANTOR PAYER SUBSCRIBER SOURCE 11/29/2018 MANUEL Murcia Primary MANUEL Almodovar [id number] Insurance:MEDICARE SHINGLETONDOB: [facility] PART A [facility] [id number] Number: Repository [id number]: [phone] [phone] () Date:2018-11-29 11/29/2018 Secondary NOT GIVENRAHEEM Almodovar Insurance:SELF PAY [facility] Number: Effective Repository Date:2018-11-29
== END 2018-11-29 19:28 | disposition home or self-care (01) ==
LOC: ED 19:27
PROVIDERS: Emergency Provider Emergency Medicine; Family Provider Family Medicine; PCP Family Medicine
DX: L50.9 Urticaria, unspecified (principal); I10 Essential (primary) hypertension; E78.00 Pure hypercholesterolemia, unspecified; Z72.0 Tobacco use; Z79.82 Long term (current) use of aspirin; Z79.899 Other long term (current) drug therapy
CPT/HCPCS: 99282

== ENCOUNTER → 2018-12-06 08:53 | Outpatient (CLI) | payer MEDICARE, SELFPAY ==
[2018-11-29 18:32] VITALS: BMI 21.7
--- NOTE | 2018-12-06 08:56 | NM_ITS ---
CLINICAL: 78-year-old male with reported history of clinical hyperthyroidism. I-123 THYROID UPTAKE and SCAN COMPARISON: None available FINDINGS: The patient was administered a 303 uCi I-123 capsule by mouth. The 4-hour I-123 radioactive iodine thyroidal uptake was calculated to be 14.9 % (normal 5 to 25 %). The 24-hour I-123 radioactive iodine thyroidal uptake was calculated to be 35.4 % (normal 5 to 40 %). The I-123 thyroid scan demonstrates homogeneous radiopharmaceutical concentration throughout both lobes of a vaguely U-shaped thyroid gland. There are no colloidal parenchymal hypofunctioning-cold nodules noted in either lobe of the thyroid gland. NM/Thyroid Uptake Single or Mult IMPRESSION: 1. NORMAL 4- and 24-hour I-123 radioactive iodine thyroidal uptakes. 2. 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 Electronically Signed: Gunnar Razo DO at 0:05 EST Tel , Service support ,
== END ==
PROVIDERS: Family Provider Family Medicine; PCP Family Medicine; Referring Provider Family Medicine; Visit Provider Family Medicine
DX: E05.90 Thyrotoxicosis, unspecified without thyrotoxic crisis or storm (principal)
CPT/HCPCS: 78012; A9516

== ENCOUNTER 2020-12-12 14:48 | Outpatient (RCR) | payer MEDICARE, SELFPAY | END 2020-12-12 23:59 | LOC: IMMUN 14:48 | PROVIDERS: PCP Family Medicine; Visit Provider Family Medicine | DX: Z23 Encounter for immunization (principal) | CPT/HCPCS: 0012A ==

== ENCOUNTER 2022-11-14 09:20 | Emergency (ER) | payer MEDICARE, SELFPAY ==
[2022-11-14] VITALS (16 sets, daily range): BP systolic 148–205; BP diastolic 47–78; PULSE 35–65; RESP 14–31; TEMP 36.6; O2SAT 92–98; BMI 21.8
--- NOTE | 2022-11-14 09:48 | EKG12_ITS ---
Test Reason : Blood Pressure : / mmHG Vent. Rate : 050 BPM Atrial Rate : 050 BPM P-R Int : 136 ms QRS Dur : 126 ms QT Int : 464 ms P-R-T Axes : 077 018 039 degrees QTc Int : 423 ms Sinus rhythm 3rd degree AV block Right bundle branch block Abnormal ECG Confirmed by MOY QUINTANA, GRACE ([id number]), food editor OFELIA MORALES ([id number]) on 11/17/2022 11:00:20 AM Referred By: AR Confirmed By:MEL WINTER MD
--- NOTE | 2022-11-14 09:48 | RAD_ITS ---
STUDY: X-RAY CHEST REASON FOR EXAM: Male, 82 years old. 2-3 week history of shortness of breath. TECHNIQUE: PA and lateral views of the chest. COMPARISON: Comparison is made with prior study dated 03/07/2017. FINDINGS: EKG electrodes are seen. Hyperinflation. Small bilateral pleural effusions with increased markings at the lung bases suggestive of atelectasis. Mild degree of CHF. Normal size heart. Normal mediastinum and huey. Normal visualized pulmonary arteries. There is atherosclerotic calcification of the aortic arch with tortuosity. There are diffuse degenerative changes of the visualized thoracic spine. Normal visualized ribs, clavicles, and shoulders. There is no demonstrated abnormality of the visualized soft tissue structures of the upper abdomen. RAD/Chest PA and Lateral IMPRESSION: Findings suggestive of a mild degree of CHF with superimposed bibasilar atelectasis and small bilateral pleural effusions. Electronically Signed: Roberto Carlos Goins MD at 11:07 EST ,
--- NOTE | 2022-11-14 09:50 | EDS_ITS ---
HPI <Keny Vences MD - Last Filed: 11/15/22 14:26> History of Present Illness Chief Complaint: Shortness of Breath Narrative Narrative: 82-year-old male, past medical history of hypertension, currently on medication presents with shortness of breath that has had for the last 2 to 3 weeks. He states his symptoms began before [place] with upper respiratory infection type symptoms. He was taking NyQuil. He had been smoking since he was 15, but has not smoked in the last few weeks because of his upper respiratory infection. He has continued shortness of breath, and states that he has mild pain across the front of his chest. He denies any nausea or vomiting. He has an occasional cough that is productive of phlegm. No diaphoresis. No leg swelling. He becomes short of breath and has dyspnea on exertion, but denies any orthopnea. He presents because of the increasing, continued shortness of breath. [facility] <Keny Vences MD - Last Filed: 11/15/22 14:26> [facility] Medical History (Updated 11/14/22 @ 18:[address] Jamie Santos, ) High cholesterol Hypertension Home Medications aspirin 325 mg tablet 81 mg PO DAILY@0800 06/14/15 [History Last Taken 08/25/15 08:00] atorvastatin 10 mg tablet 40 mg PO QHS 06/14/15 [History Last Taken 08/25/15 07:00] lisinopril 20 mg-hydrochlorothiazide 12.5 mg tablet (Zestoretic) 1 ea PO DAILY 03/07/17 [History Last Taken Unknown] metoprolol succinate 50 mg tablet,extended release 24 hr 50 mg PO DAILY 11/14/22 [History Last Taken Unknown] Allergy/AdvReac Type Severity Reaction Status Date / Time No Known Allergies Allergy Verified 11/29/18 19:09 Social History Smoking Status: Current every day smoker tobacco type: cigarettes ROS <Keny Vences MD - Last Filed: 11/15/22 14:26> ROS ED ROS Narrative Constitutional: No fever, no chills. HEENT: No sore throat. No neck pain. No loss of vision. No rhinorrhea. Cardiovascular: Mild chest tightness/chest pain. No palpitations. No pedal edema. Respiratory: Occasional productive cough, positive dyspnea on exertion and shortness of breath. Abdominal: No abdominal pain. No nausea. No vomiting. Genitourinary: No dysuria. No hematuria. Musculoskeletal: No myalgias. No arthralgias. Neurologic: No headaches. No dizziness. No lightheadedness. Skin: No rash. No change in color. Psychiatric: No depression. No anxiety. EXAM <Keny Vences MD - Last Filed: 11/15/22 14:26> Physical Exam Narrative Exam Narrative: Afebrile. Vital signs noted. HEENT: Normocephalic. Atraumatic. PERRL, EOMI. Neck soft and supple. No point tenderness or step off. Cardiovascular: Positive bradycardia, no murmurs, rubs, or gallops appreciated. Respiratory: No tachypnea. Lungs clear to auscultation bilaterally. Gastrointestinal: Abdomen soft, nontender, with normoactive bowel sounds. No rebound or guarding. Neurological: Awake. Alert. Nonfocal, nonlateralizing. Skin: No rash. Normal color. No pallor. Musculoskeletal: No pedal edema. Full range of motion extremities. Const Vital Signs: 11/14/22 16:00 11/14/22 17:00 11/14/22 18:00 Pulse Rate 45 L 55 L 63 Respiratory Rate 16 16 15 Blood Pressure 187/53 H 177/53 H 177/53 H Blood Pressure Mean 97 94 94 Pulse Ox 98 97 98 Oxygen Delivery Method Room Air Room Air Room Air 11/14/22 19:00 11/14/22 20:26 11/14/22 22:06 Pulse Rate 55 L 51 L 64 Respiratory Rate 15 22 H 15 Blood Pressure 176/48 H 178/47 H 148/58 H Blood Pressure Mean 90 90 88 Pulse Ox 94 92 97 Oxygen Delivery Method Room Air Room Air Room Air 11/14/22 23:00 11/15/22 02:32 Pulse Rate 59 L 55 L Respiratory Rate 16 15 Blood Pressure 155/51 H 175/79 H Blood Pressure Mean 85 111 Pulse Ox 97 98 Oxygen Delivery Method Room Air <Dr. Jamie Santos DO - Last Filed: 11/15/22 01:43> Physical Exam Const Vital Signs: 11/14/22 16:00 11/14/22 17:00 11/14/22 18:00 Pulse Rate 45 L 55 L 63 Respiratory Rate 16 16 15 Blood Pressure 187/53 H 177/53 H 177/53 H Blood Pressure Mean 97 94 94 Pulse Ox 98 97 98 Oxygen Delivery Method Room Air Room Air Room Air 11/14/22 19:00 11/14/22 20:26 11/14/22 22:06 Pulse Rate 55 L 51 L 64 Respiratory Rate 15 22 H 15 Blood Pressure 176/48 H 178/47 H 148/58 H Blood Pressure Mean 90 90 88 Pulse Ox 94 92 97 Oxygen Delivery Method Room Air Room Air Room Air 11/14/22 23:00 11/15/22 02:32 Pulse Rate 59 L 55 L Respiratory Rate 16 15 Blood Pressure 155/51 H 175/79 H Blood Pressure Mean 85 111 Pulse Ox 97 98 Oxygen Delivery Method Room Air [facility] <Keny Vences MD - Last Filed: 11/15/22 14:26> [facility] Narrative Medical decision making narrative: In the differential diagnosis is undiagnosed COPD. I have less concern for acute coronary syndrome or pulmonary embolism. Pulse ox is 95% on room air without evidence of hypoxia. His initial EKG [place] interpreted by myself. Although it is read as sinus bradycardia with marked sinus arrhythmia with PACs, my interpretation shows third-degree heart block as calipers were used to miley out the P waves. I reviewed his laboratory work and his CBC shows a normal white count of 7.8 with hemoglobin normal at 14.6, hematocrit 44.2. Normal platelet count of 259. His electrolyte panel was obtained and he has an acute kidney injury with a creatinine slightly elevated at 1.48 with a BUN of 21. Glucose is appropriately elevated at 113 with a normal anion gap of 7. High- sensitivity troponin is 28. BNP is slightly elevated at 367.6. I reviewed his chest x-ray and interpreted it. There is bibasilar atelectasis with small bilateral pleural effusions. I reviewed the radiology report and agree. On the cardiac technologist, his rhythm appeared to be normalized although it was still bradycardic in the 40s. Second EKG was obtained and interpreted by myself which once again states marked sinus bradycardia with short OK interval at 39 bpm, but I do think that he is continued in third-degree heart block, dropping every other beat. I discussed the patient with Dr. Campuzano with cardiology who agrees that the patient will require transfer as there is no EP physician available at this facility currently. Initially, I discussed the patient with the [facility] transfer line, but have not heard back as they stated that they are on a waiting list for any ICU patients which I think the patient might require. Patient then stated he was agreeable to try [place]. I discussed patient with the [facility] transfer line and currently awaiting callback from cardiology. Lab Data Attestation: I reviewed the patient's lab results. Labs: Laboratory Results - last 24 hr 11/14/22 11/14/22 11/14/22 10:10 10:10 10:10 WBC 7.8 RBC 4.78 Hgb 14.6 Hct 44.2 MCV 92.5 MCH 30.5 MCHC 33.0 RDW Std Deviation 45.6 H RDW Coeff of Cuco 13.3 Plt Count 259 MPV 10.2 Immature Gran % (Auto) 0.300 Neut % (Auto) 74.9 H Lymph % (Auto) 13.0 L [place] % (Auto) 6.1 Eos % (Auto) 4.5 Baso % (Auto) 1.2 H Absolute Neuts (auto) 5.8 Absolute Lymphs (auto) 1.01 Nucleated RBC % 0 Sodium 141 Potassium 3.8 Chloride 107 Carbon Dioxide 27.0 Anion Gap 7 BUN 21 H Creatinine 1.48 H Estim Creat Clear Calc 36.88 Est GFR (MDRD) Af Amer 58 L Est GFR (MDRD) Non-Af 48 L BUN/Creatinine Ratio 14.2 Glucose 113 H Calcium 9.0 Troponin I High Sens 28 B-Natriuretic Peptide 367.6 H Radiography Chest X-Ray - ED: Read by ED Physician Diagnostic Testing: Clinical Impression(s) from Imaging Studies Chest X-Ray 11/14/22 09:48 IMPRESSION: Findings suggestive of a mild degree of CHF with superimposed bibasilar atelectasis and small bilateral pleural effusions. Electronically Signed: Roberto Carlos Goins MD at 11:07 EST , <Dr. Jamie Santos, DO - Last Filed: 11/15/22 01:43> [facility] Lab Data Labs: Laboratory Results - last 24 hr 01/05/0111/14/22 11/14/22 10:10 10:10 10:10 WBC 7.8 RBC 4.78 Hgb 14.6 Hct 44.2 MCV 92.5 MCH 30.5 MCHC 33.0 RDW Std Deviation 45.6 H RDW Coeff of Cuco 13.3 Plt Count 259 MPV 10.2 Immature Gran % (Auto) 0.300 Neut % (Auto) 74.9 H Lymph % (Auto) 13.0 L [place] % (Auto) 6.1 Eos % (Auto) 4.5 Baso % (Auto) 1.2 H Absolute Neuts (auto) 5.8 Absolute Lymphs (auto) 1.01 Nucleated RBC % 0 Sodium 141 Potassium 3.8 Chloride 107 Carbon Dioxide 27.0 Anion Gap 7 BUN 21 H Creatinine 1.48 H Estim Creat Clear Calc 36.88 Est GFR (MDRD) Af Amer 58 L Est GFR (MDRD) Non-Af 48 L BUN/Creatinine Ratio 14.2 Glucose 113 H Calcium 9.0 Troponin I High Sens 28 B-Natriuretic Peptide 367.6 H Radiography Diagnostic Testing: Clinical Impression(s) from Imaging Studies Chest X-Ray 11/14/22 09:48 IMPRESSION: Findings suggestive of a mild degree of CHF with superimposed bibasilar atelectasis and small bilateral pleural effusions. Electronically Signed: Roberto Carlos Goins MD at 11:07 EST Reading Location ID and State: [address] [place] [address] , Service support , Treatment and Re-Evaluation Narrative: Care of the patient was turned over to tx pending transfer to [facility]. Patient was accepted to the [facility] to the service of Dr. Salazar. Patient is agreeable with the plan. Patient will be transferred there. Care of the patient was turned over the oncoming physician pending transfer. Discharge Plan Triage Chief Complaint: Shortness of Breath ED Provider: Keny Vences Dx/Rx/DC Orders Clinical Impression: Third degree heart block, Bradycardia, Hypertension Prescriptions: No Action atorvastatin 10 MG tablet 40 mg PO QHS Label Comments: CHOLESTEROL aspirin 325 MG tablet 81 mg PO DAILY@0800 Label Comments: HEART [email or web address] lisinopril-hydrochlorothiazide [Zestoretic] 1 EACH tablet 1 ea PO DAILY metoprolol succinate 50 mg Tablet Extended Release 24 Hr 50 mg PO DAILY Primary Care Provider: Miley Townsend Referrals: Miley Townsend MD [Primary Care Provider] - Disposition Disposition: Acute Care Hospital Discharge Location: [facility] Discharge Date/Time: 11/15/22 02:33
[2022-11-14] MEDS: Albuterol 2.5 MG/3 ML VIAL.NEB. INHALATION (10:13)
[2022-11-14] MEDS: predniSONE 20 MG Tablet 60 MG PO (10:15)
[2022-11-14 10:32] LABS: Absolute Lymphocyte Count 1.01 X10^3/uL (0.83-4.51); Absolute Neutrophil Count 5.8 X10^3/uL (2.0-7.7); Basophil# 0.09 X10^3/uL; Basophil% 1.2 % (0-1); Eosinophil# 0.35 X10^3/uL; Eosinophils% 4.5 % (0-5); Hematocrit 44.2 % (40-54); Hemoglobin 14.6 g/dL (13.0-16.5); Lymphocyte # 1.01 X10^3/ul (0.83-4.51); Mean Corpuscular Hgb 30.5 pg (27.0-32.0); Mean Corpuscular Volume 92.5 fL (80-94); Mean Platelet Vol. 10.2 fl (6.2-12.0); Monocyte# 0.47 X10^3/uL; Monocyte% 6.1 % (0-10); NRBC Flagged by Analyzer 0 % (0-5); Neutrophil # 5.82 X10^3/uL (2.7-7.7); Neutrophil % 74.9 % (47-70); Platelet Count 259 K/mm3 (150-450); RBC Distribution Width CV 13.3 % (11.6-14.6); RBC Distribution Width SD 45.6 fl (35.1-43.9); Red Blood Count 4.78 M/mm3 (4.6-6.2); White Blood Count 7.8 K/mm3 (4.4-11.0)
[2022-11-14 10:45] LABS: Anion Gap 7 (5-15); BUN 21 mg/dL (7-18); BUN/Creat Ratio 14.2 RATIO (10-20); Chloride 107 mmol/L (98-107); Creatinine, Serum 1.48 mg/dL (0.70-1.30); EST Glomerular Filtration Rate 48 mL/min (>60); Est Glom Filt Rate - Afr Amer 58 mL/min (>60); Estimated Creatinine Clearance 36.88 ml/min; Glucose 113 mg/dL (74-106); Potassium 3.8 mmol/L (3.5-5.1); Sodium Level 141 mmol/L (136-145); Troponin-I HS 28 pg/mL (3.0-78.0)
[2022-11-14] MEDS: hydrALAZINE 20 MG/ML Vial 5 MG IV (10:50)
[2022-11-14 11:00] LABS: BNP,B-Type NATRIURETIC PEPTIDE 367.6 pg/mL (0-100)
--- NOTE | 2022-11-14 11:23 | EKG12_ITS ---
Test Reason : REPEAT Blood Pressure : / mmHG Vent. Rate : 039 BPM Atrial Rate : 039 BPM P-R Int : 064 ms QRS Dur : 144 ms QT Int : 556 ms P-R-T Axes : 073 -57 105 degrees QTc Int : 447 ms Marked sinus bradycardia with short MI 3rd degree AV block Left axis deviation Left bundle branch block Abnormal ECG Confirmed by MOY QUINTANA, GRACE ([id number]), video editor OFELIA MORALES ([id number]) on 11/17/2022 11:03:32 AM Referred By: ANDRZEJ Confirmed By:MEL WINTER MD
--- NOTE | 2022-11-14 19:49 | NURSING ---
[facility] CALLED AND CHANGED THE ROOM TO 2018
[2022-11-15 02:32] VITALS: BP 175/79; PULSE 55; RESP 15; O2SAT 98
== END 2022-11-15 02:33 | disposition short-term general hospital (02) ==
PROVIDERS: Emergency Provider Emergency Medicine; PCP Family Medicine; Visit Provider Emergency Medicine
DX: I44.2 Atrioventricular block, complete (principal); N17.9 Acute kidney failure, unspecified; R00.1 Bradycardia, unspecified; I49.8 Other specified cardiac arrhythmias; I10 Essential (primary) hypertension; J98.11 Atelectasis; E78.00 Pure hypercholesterolemia, unspecified; F17.210 Nicotine dependence, cigarettes, uncomplicated; Z79.82 Long term (current) use of aspirin; Z79.899 Other long term (current) drug therapy; Z20.822 Contact with and (suspected) exposure to COVID-19
CPT/HCPCS: 71046; 80048; 83880; 84484; 85025; 87811; 93005; 94640; 96374; 99285; J7040; A4216

== ENCOUNTER 2024-06-15 17:58 | Emergency (ER) | payer MEDICARE, SELFPAY ==
[2024-06-15 17:59] VITALS: BP 192/93; PULSE 70; RESP 18; TEMP 36.4; O2SAT 95; BMI 21.6
--- NOTE | 2024-06-15 18:17 | EDS_ITS ---
HPI History of Present Illness Chief Complaint: Lower Extremity Injury Informant: patient and family Narrative Narrative: 83-year-old injured his left knee yesterday. He states he had his foot up on a countertop in order to get to a screw he was trying to put into a cabinet, and in doing this he had his left knee hyperflexed and up into his chest. When he got down to put his foot down on the floor, he felt some pain suddenly in his medial left knee. Later that night he went to the bathroom and remembers putting his foot down the pivot and specifically remembers that pain hitting him and the leg almost giving out and almost falling. He has been able to walk on it for the most part it hurts some to do so and bear weight, but he is afraid his legs can give out. He does not usually walk with a cane or a walker or any other assist device. He states he had a remote injury to this leg and never had it evaluated, it was a couple decades ago, piece of steel into my knee. As a separate issue he had a pacemaker put in 2 years ago and has had a rash e giancarlo since shortly after that. Mostly on his arms. About 2-2.5 weeks ago his doctor discontinued one of his blood pressure medications thinking it may be causing the pain because his he went to a inspector production [employer] and had a biopsy and was told that it seem like a drug rash most likely based on that and his evaluation. Incidentally his blood pressure is elevated here, family also agrees that he is in pain which may be making it higher but this is the first time he has checked it at home without being at the doctor. He does not have any systemic symptoms. [facility] Medical History Graves' disease Carotid stenosis Third degree atrioventricular block determined by electrocardiography Essential hypertension Hyperlipidemia Home Medications ?Medication ?Instructions ?Recorded ?Last Taken ?Type acetaminophen 325 mg tablet 325 mg PO Q6H PRN pain 11/19/22 Unknown History aspirin 81 mg tablet,delayed 81 mg PO DAILY 11/19/22 Unknown History release (Adult Aspirin Regimen) atorvastatin 40 mg tablet 40 mg PO QHS 11/19/22 Unknown History lisinopril 20 1 tab PO DAILY 11/19/22 Unknown History mg-hydrochlorothiazide 25 mg tablet permethrin 5 % topical cream 1 applic topical Q14D 2 doses #60 12/21/23 Unknown Rx grams nifedipine 60 mg tablet,extended 60 mg PO BID 01/20/24 Unknown History release Allergy/AdvReac Type Severity Reaction Status Date / Time No Known Allergies Allergy Verified 06/15/24 17:59 Family History Mother Emphysema lung Father Cancer Sister Cancer Brother Lung cancer Surgical History History of carotid endarterectomy (~2014) Presence of permanent cardiac pacemaker (11/15/22) Social History Smoking Status: Former smoker how long ago did patient quit smokin months ago alcohol intake: never substance use type: does not use caffeine: Yes Type: coffee Number of servings: 4 ROS ROS ED Constitutional Constitutional ED: Denies chills or fever(s) Musculoskeletal Musculoskeletal: Reports extremity pain; Denies neck pain Integumentary Reports rash; Denies Abrasions or wounds Neurologic Neurologic: Denies paresthesias or weakness EXAM Physical Exam Const Vital Signs: 06/15/24 17:59 Temperature 97.6 F L Temperature Source Temporal Pulse Rate 70 Respiratory Rate 18 Blood Pressure 192/93 H Blood Pressure Mean 126 Pulse Ox 95 Oxygen Delivery Method Room Air Positive well nourished and well developed General Appearance ED: well developed and NAD Neck full ROM and supple Back/Spine normal ROM and normal to inspection Extremity full ROM Extremity Narrative: Mildly tender anterior medial left knee, near the plica send ovalis. Mild tenderness at the medial joint line. No other bony tenderness. There is some discomfort with stressing the MCL but no laxity. The other ligaments yield no pain or laxity on stressing including negative anterior and posterior drawer signs. There may be a small effusion, but he is able to bend his knee fully without difficulty. No patella tenderness. Neuro oriented x3, no focal motor deficits and no sensory deficits noted Sensorium / Orientation: alert Psych mental status grossly normal and thought process normal Skin no wounds Rashes: no rashes MDM MDM MDM Narrative Medical decision making narrative: 4 view x-rays of the left knee were obtained and on my interpretation they show no acute fractures. There is significant arthritis. I agree with the radiology interpretation. Most of the arthritis is in the medial compartment, he states has been having pain for years off-and-on it may be related, best case scenario he has a flareup of it from this maneuver he did, worst-case he has a torn meniscus. Given Gage wrap, he declines crutches advised him to get a cane and use it as an insurance policy so that he does not fall since he states at times he feels like he is getting it suddenly give out. Referred to orthopedics, advised that it would be okay for him to take an occasional dose of ibuprofen but I would not do it every day. History & Record Review Discussion w/independent historian: Patient and Family Radiography Diagnostic Testing: Clinical Impression(s) from Imaging Studies Knee X-Ray 06/15/24 18:25 IMPRESSION: No acute abnormalities. Severe, medial compartment predominant, tricompartmental degenerative arthrosis of the knee. Electronically Signed: Shankar Augustin MD at 18:55 EDT , Discharge Plan Triage Chief Complaint: Lower Extremity Injury ED Provider: Maurice Chris Dx/Rx/DC Orders Clinical Impression: Injury of knee, left, Arthritis of left knee Instructions: ED Bandage Elastic Wrap, ED Knee Sprain, Osteoarthritis (OA) Prescriptions: No Action aspirin [Adult Aspirin Regimen] 81 mg tablet,delayed release (DR/EC) 81 mg PO DAILY acetaminophen 325 mg tablet 325 mg PO Q6H PRN (Reason: pain) atorvastatin 40 mg tablet 40 mg PO QHS lisinopril-hydrochlorothiazide 20-25 mg tablet 1 tab PO DAILY Patient Comments: Take 1 tablet by mouth every morning. permethrin 5 % cream 1 applic topical Q14D Qty: 60 1RF Rx Instructions: apply second treatment 14 days after first treatment if live lice remain nifedipine 60 mg tablet extended release 60 mg PO BID Primary Care Provider: Hayden Townsend Referrals: Bin Cueva DO [Med Staff - Active Staff] - 10-14 Days if not better Hayden Townsend MD [Primary Care Provider] - Print Language: [place] Islander Disposition Disposition: Home, Self Care
--- NOTE | 2024-06-15 18:25 | RAD_ITS ---
INDICATION: injury, medial pain EXAMINATION/TECHNIQUE: X-RAY - LEFT XR Knee Complete 4 Views or More COMPARISON: None. FINDINGS: No acute fracture or malalignment. Severe, medial compartment predominant, tricompartmental degenerative arthrosis of the knee. No joint effusion. The soft tissues are unremarkable. RAD/Knee 4 or More Views IMPRESSION: No acute abnormalities. Severe, medial compartment predominant, tricompartmental degenerative arthrosis of the knee. Electronically Signed: Shankar Augustin MD at 18:55 EDT ,
[2024-06-15 20:26] VITALS: BP 176/78; PULSE 75; RESP 18; TEMP 36.8; O2SAT 96
== END 2024-06-15 20:28 | disposition home or self-care (01) ==
PROVIDERS: Emergency Provider Emergency Medicine; PCP Family Medicine; Visit Provider Emergency Medicine
DX: S80.912A Unspecified superficial injury of left knee, initial encounter (principal); X50.9XXA Other and unspecified overexertion or strenuous movements or postures, initial encounter; Y93.89 Activity, other specified; M17.12 Unilateral primary osteoarthritis, left knee; I10 Essential (primary) hypertension; E78.5 Hyperlipidemia, unspecified; Z95.0 Presence of cardiac pacemaker; Z79.82 Long term (current) use of aspirin; Z79.899 Other long term (current) drug therapy; Z87.891 Personal history of nicotine dependence
CPT/HCPCS: 73564; 99282

== ENCOUNTER → 2024-10-26 | Outpatient (CLI) | payer MEDICARE, SELFPAY ==
[2024-10-26 09:09] LABS: Absolute Lymphocyte Count 1.96 X10^3/uL (0.83-4.51); Absolute Neutrophil Count 5.8 X10^3/uL (2.0-7.7); Basophil# 0.14 X10^3/uL; Basophil% 1.5 % (0-1); Eosinophil# 0.56 X10^3/uL; Eosinophils% 5.9 % (0-5); Hematocrit 45.7 % (40-54); Hemoglobin 15.2 g/dL (13.0-16.5); Lymphocyte # 1.96 X10^3/ul (0.83-4.51); Lymphocyte % 20.8 % (19-41); Mean Corp Hgb Conc 33.3 g/dL (32-36); Mean Corpuscular Hgb 29.1 pg (27.0-32.0); Mean Corpuscular Volume 87.5 fL (80-94); Mean Platelet Vol. 9.7 fl (6.2-12.0); Monocyte# 0.92 X10^3/uL; Monocyte% 9.7 % (0-10); NRBC Flagged by Analyzer 0 % (0-5); Neutrophil # 5.83 X10^3/uL (2.7-7.7); Neutrophil % 61.8 % (47-70); Platelet Count 301 K/mm3 (150-450); RBC Distribution Width CV 13.7 % (11.6-14.6); RBC Distribution Width SD 43.8 fl (35.1-43.9); Red Blood Count 5.22 M/mm3 (4.6-6.2); White Blood Count 9.4 K/mm3 (4.4-11.0)
[2024-10-26 09:52] LABS: ALB/GLOB Ratio 1.2 RATIO (0.9-2.4); AST(SGOT) 19 U/L (15-37); Alanine Aminotransfer ALT/SGPT 23 U/L (16-61); Albumin, Serum 3.6 g/dL (3.2-5.0); Alkaline Phosphatase 55 U/L (45-117); Anion Gap 4 (5-15); BUN 24 mg/dL (7-18); BUN/Creat Ratio 16.9 RATIO (10-20); Calcium,Total 9.2 mg/dL (8.5-10.1); Chloride 106 mmol/L (98-107); Creatinine, Serum 1.42 mg/dL (0.70-1.30); EST Glomerular Filtration Rate 50 mL/min (>60); Est Glom Filt Rate - Afr Amer 61 mL/min (>60); Glucose 100 mg/dL (74-106); Magnesium 2.1 mg/dL (1.6-2.6); Potassium 3.6 mmol/L (3.5-5.1); Protein, Total 6.6 g/dL (6.4-8.2); Sodium Level 138 mmol/L (136-145); T4 Free Direct 1.08 ng/dL (0.76-1.46)
== END | disposition home or self-care (01) ==
LOC: LAB 08:13
PROVIDERS: PCP Family Medicine; Referring Provider Nurse Practitioner Family; Visit Provider Nurse Practitioner Family
DX: R00.0 Tachycardia, unspecified (principal); Z95.0 Presence of cardiac pacemaker; I10 Essential (primary) hypertension; E78.5 Hyperlipidemia, unspecified
CPT/HCPCS: 36415; 80053; 83735; 84439; 84443; 85025

== ENCOUNTER 2024-11-14 16:50 | Emergency (ER) | payer MEDICARE, SELFPAY ==
[2024-11-14] VITALS (29 sets, daily range): BP systolic 72–194; BP diastolic 49–72; PULSE 78–112; RESP 13–35; TEMP 35.9–36.3; O2SAT 95–97; BMI 21.5
--- NOTE | 2024-11-14 16:56 | EKG12_ITS ---
Test Reason : SYNCOPE Blood Pressure : */* mmHG Vent. Rate : 100 BPM Atrial Rate : 100 BPM P-R Int : 142 ms QRS Dur : 132 ms QT Int : 368 ms P-R-T Axes : 83 37 72 degrees QTcB Int : 474 ms Atrial-sensed ventricular-paced rhythm Abnormal ECG Confirmed by Thad Sotelo ([id number]), brands editor OFELIA MORALES ([id number]) on 11/15/2024 1:29:05 PM Referred By: Confirmed By: Thad Sotelo
[2024-11-14] MEDS: 0.9% Normal Saline (1000mL) 1,000 ML 999 ML IV ×2 (17:25→19:11)
[2024-11-14 17:29] LABS: Absolute Neutrophil Count 9.3 X10^3/uL (2.0-7.7); Basophil# 0.08 X10^3/uL; Basophil% 0.7 % (0-1); Eosinophil# 0.06 X10^3/uL; Eosinophils% 0.5 % (0-5); Hemoglobin 15.6 g/dL (13.0-16.5); Lymphocyte % 8.8 % (19-41); Mean Corp Hgb Conc 33.9 g/dL (32-36); Mean Corpuscular Hgb 29.5 pg (27.0-32.0); Mean Corpuscular Volume 87.1 fL (80-94); Mean Platelet Vol. 9.9 fl (6.2-12.0); Monocyte# 0.89 X10^3/uL; Monocyte% 7.9 % (0-10); NRBC Flagged by Analyzer 0 % (0-5); Neutrophil # 9.25 X10^3/uL (2.7-7.7); Neutrophil % 81.7 % (47-70); Platelet Count 320 K/mm3 (150-450); RBC Distribution Width CV 13.6 % (11.6-14.6); RBC Distribution Width SD 43.7 fl (35.1-43.9); Red Blood Count 5.28 M/mm3 (4.6-6.2); White Blood Count 11.3 K/mm3 (4.4-11.0)
--- NOTE | 2024-11-14 17:33 | EDS_ITS ---
HPI History of Present Illness Chief Complaint: Syncope Narrative Narrative: Patient is a 84-year-old male past medical history of Graves' disease, hypertension, hyperlipidemia, carotid artery stenosis who presents to the [facility] part with a chief complaint of passing out earlier today. Patient states that he woke up this morning early and noted that he went to get a drink of water and passed out. He states that he does not believe he hit his head but he is unsure as he blacked out. He states that he is not sure what causes. He states that he has been drinking few bottles water a day when he is thirsty and states has been eating. Patient states that he lives alone. Patient denies any blood thinning medications. He states that he worried about this all day and called his stepdaughter who advised him to come here to the emergency department to be evaluated. 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 Essential hypertension Hyperlipidemia Home Medications ?Medication ?Instructions ?Recorded ?Last Taken ?Type acetaminophen 325 mg tablet 325 mg PO Q6H PRN pain 11/19/22 Unknown History aspirin 81 mg tablet,delayed 81 mg PO DAILY 11/19/22 Unknown History release (Adult Aspirin Regimen) atorvastatin 40 mg tablet 40 mg PO QHS 11/19/22 Unknown History lisinopril 20 1 tab PO DAILY 11/19/22 Unknown History mg-hydrochlorothiazide 25 mg tablet nifedipine 60 mg tablet,extended 60 mg PO BID 01/20/24 Unknown History release ezetimibe 10 mg tablet (Zetia) 10 mg PO DAILY #90 tabs 11/03/24 Unknown Rx Allergy/AdvReac Type Severity Reaction Status Date / Time No Known Allergies Allergy Verified 11/14/24 16:51 Family History Mother Emphysema lung Father Cancer Sister Cancer Brother Lung cancer Surgical History History of carotid endarterectomy (~2014) Presence of permanent cardiac pacemaker (11/15/22) Social History Smoking Status: Former smoker how long ago did patient quit smokin months ago alcohol intake: never substance use type: does not use caffeine: Yes Type: coffee Number of servings: 4 ROS ROS ED ROS Narrative Constitutional: Denies any headaches, fevers, chills, lightness, dizziness Eyes: Denies change in vision double vision blurry vision Cardiovascular: Denies chest pain or palpitations Respiratory: Denies coughing wheezing shortness of breath Abdomen: Denies abdominal pain nausea vomit diarrhea : Denies any urinary symptoms Neurological: Denies numbness, weakness, tingling Musculoskeletal: Denies back pain Skin: Denies rashes or lesions EXAM Physical Exam Narrative Exam Narrative: General: Patient was lying in bed rest comfortably did not appear to be in acute distress Head: Atraumatic, normocephalic Eyes: PERRL bilaterally, EOMI bilateral, no conjunctival injection noted Neck: Soft, supple, trachea midline Cardiovascular: Regular rate and rhythm no murmurs gallops rubs noted Respiratory: Clear to auscultation bilaterally Abdomen: Soft, nondistended, nontender to palpation, bowel sounds present MS 4 Musculoskeletal: All bony prominences palpated no pain elicited, all joints taken through full range of motion no pain elicited Extremities: +5/5 strength noted in the bilateral upper and lower extremities, radial pulses +2/4 in the bilateral upper extremities, no pedal edema no exam Neurological: Patient following commands knew that he was at [facility] year is 2024 Skin: Warm, dry, intact no rashes or lesions noted Const Vital Signs: 11/14/24 16:51 11/14/24 16:54 11/14/24 16:56 Temperature 96.7 F L Temperature Source Temporal Pulse Rate 101 H Pulse Rate [Lying] Pulse Rate [Sitting (for 1 minute prior to obtaining)] Pulse Rate [Standing (for 1 minute prior to obtaining)] Respiratory Rate 16 Respiratory Effort Respiratory Pattern Blood Pressure 72/59 L 99/49 L Blood Pressure [Lying] Blood Pressure [Sitting (for 1 minute prior to obtaining)] Blood Pressure [Standing (for 1 minute prior to obtaining)] Blood Pressure Mean 63 65 Blood Pressure Mean [Lying] Blood Pressure Mean [Sitting (for 1 minute prior to obtaining)] Blood Pressure Mean [Standing (for 1 minute prior to obtaining)] Pulse Ox 96 Oxygen Delivery Method Room Air Room Air 11/14/24 16:56 11/14/24 17:12 11/14/24 17:25 Temperature Temperature Source Pulse Rate Pulse Rate [Lying] 90 Pulse Rate [Sitting (for 1 minute prior to obtaining)] 94 Pulse Rate [Standing (for 1 minute prior to obtaining)] 101 H Respiratory Rate Respiratory Effort Normal Non-Labored Respiratory Pattern Normal Blood Pressure Blood Pressure [Lying] 127/55 H Blood Pressure [Sitting (for 1 minute prior to obtaining)] 121/54 H Blood Pressure [Standing (for 1 minute prior to obtaining)] 96/53 L Blood Pressure Mean Blood Pressure Mean [Lying] 79 Blood Pressure Mean [Sitting (for 1 minute prior to obtaining)] 76 Blood Pressure Mean [Standing (for 1 minute prior to obtaining)] 67 Pulse Ox Oxygen Delivery Method Room Air 11/14/24 17:29 11/14/24 17:30 11/14/24 17:31 Temperature Temperature Source Pulse Rate 104 H 112 H 87 Pulse Rate [Lying] Pulse Rate [Sitting (for 1 minute prior to obtaining)] Pulse Rate [Standing (for 1 minute prior to obtaining)] Respiratory Rate 18 35 H 20 H Respiratory Effort Respiratory Pattern Blood Pressure 122/58 H Blood Pressure [Lying] Blood Pressure [Sitting (for 1 minute prior to obtaining)] Blood Pressure [Standing (for 1 minute prior to obtaining)] Blood Pressure Mean 76 Blood Pressure Mean [Lying] Blood Pressure Mean [Sitting (for 1 minute prior to obtaining)] Blood Pressure Mean [Standing (for 1 minute prior to obtaining)] Pulse Ox Oxygen Delivery Method 11/14/24 17:45 11/14/24 17:52 11/14/24 18:00 Temperature Temperature Source Pulse Rate 96 89 Pulse Rate [Lying] Pulse Rate [Sitting (for 1 minute prior to obtaining)] Pulse Rate [Standing (for 1 minute prior to obtaining)] Respiratory Rate 19 H 16 Respiratory Effort Respiratory Pattern Blood Pressure 139/56 H 95/72 Blood Pressure [Lying] Blood Pressure [Sitting (for 1 minute prior to obtaining)] Blood Pressure [Standing (for 1 minute prior to obtaining)] Blood Pressure Mean 78 78 Blood Pressure Mean [Lying] Blood Pressure Mean [Sitting (for 1 minute prior to obtaining)] Blood Pressure Mean [Standing (for 1 minute prior to obtaining)] Pulse Ox Oxygen Delivery Method 11/14/24 18:15 11/14/24 18:30 11/14/24 18:45 Temperature Temperature Source Pulse Rate 91 84 86 Pulse Rate [Lying] Pulse Rate [Sitting (for 1 minute prior to obtaining)] Pulse Rate [Standing (for 1 minute prior to obtaining)] Respiratory Rate 21 H 23 H 23 H Respiratory Effort Respiratory Pattern Blood Pressure 98/66 119/54 L 122/60 H Blood Pressure [Lying] Blood Pressure [Sitting (for 1 minute prior to obtaining)] Blood Pressure [Standing (for 1 minute prior to obtaining)] Blood Pressure Mean 76 73 78 Blood Pressure Mean [Lying] Blood Pressure Mean [Sitting (for 1 minute prior to obtaining)] Blood Pressure Mean [Standing (for 1 minute prior to obtaining)] Pulse Ox Oxygen Delivery Method 11/14/24 19:00 11/14/24 19:00 11/14/24 19:15 Temperature Temperature Source Pulse Rate 85 78 Pulse Rate [Lying] Pulse Rate [Sitting (for 1 minute prior to obtaining)] Pulse Rate [Standing (for 1 minute prior to obtaining)] Respiratory Rate 17 23 H Respiratory Effort Respiratory Pattern Blood Pressure 119/56 L 122/62 H Blood Pressure [Lying] Blood Pressure [Sitting (for 1 minute prior to obtaining)] Blood Pressure [Standing (for 1 minute prior to obtaining)] Blood Pressure Mean 74 79 Blood Pressure Mean [Lying] Blood Pressure Mean [Sitting (for 1 minute prior to obtaining)] Blood Pressure Mean [Standing (for 1 minute prior to obtaining)] Pulse Ox Oxygen Delivery Method 11/14/24 19:30 11/14/24 19:45 11/14/24 20:00 Temperature Temperature Source Pulse Rate 83 106 H 92 Pulse Rate [Lying] Pulse Rate [Sitting (for 1 minute prior to obtaining)] Pulse Rate [Standing (for 1 minute prior to obtaining)] Respiratory Rate 20 H 24 H 18 Respiratory Effort Respiratory Pattern Blood Pressure 131/61 H 144/65 H 129/60 H Blood Pressure [Lying] Blood Pressure [Sitting (for 1 minute prior to obtaining)] Blood Pressure [Standing (for 1 minute prior to obtaining)] Blood Pressure Mean 81 88 81 Blood Pressure Mean [Lying] Blood Pressure Mean [Sitting (for 1 minute prior to obtaining)] Blood Pressure Mean [Standing (for 1 minute prior to obtaining)] Pulse Ox Oxygen Delivery Method 11/14/24 20:15 11/14/24 20:20 11/14/24 20:21 Temperature Temperature Source Pulse Rate Pulse Rate [Lying] 96 Pulse Rate [Sitting (for 1 minute prior to obtaining)] 98 Pulse Rate [Standing (for 1 minute prior to obtaining)] 110 H Respiratory Rate 30 H Respiratory Effort Respiratory Pattern Blood Pressure 141/64 H 130/61 H Blood Pressure [Lying] 130/61 H Blood Pressure [Sitting (for 1 minute prior to obtaining)] 129/57 H Blood Pressure [Standing (for 1 minute prior to obtaining)] 125/53 H Blood Pressure Mean 88 79 Blood Pressure Mean [Lying] 84 Blood Pressure Mean [Sitting (for 1 minute prior to obtaining)] 81 Blood Pressure Mean [Standing (for 1 minute prior to obtaining)] 77 Pulse Ox Oxygen Delivery Method 11/14/24 20:23 11/14/24 20:26 11/14/24 20:30 Temperature Temperature Source Pulse Rate 96 108 H Pulse Rate [Lying] Pulse Rate [Sitting (for 1 minute prior to obtaining)] Pulse Rate [Standing (for 1 minute prior to obtaining)] Respiratory Rate 24 H 22 H 19 H Respiratory Effort Respiratory Pattern Blood Pressure 129/57 H 125/53 H 147/67 H Blood Pressure [Lying] Blood Pressure [Sitting (for 1 minute prior to obtaining)] Blood Pressure [Standing (for 1 minute prior to obtaining)] Blood Pressure Mean 79 74 89 Blood Pressure Mean [Lying] Blood Pressure Mean [Sitting (for 1 minute prior to obtaining)] Blood Pressure Mean [Standing (for 1 minute prior to obtaining)] Pulse Ox 96 97 Oxygen Delivery Method Room Air Room Air Room Air 11/14/24 20:45 11/14/24 21:00 Temperature Temperature Source Pulse Rate 101 H 99 Pulse Rate [Lying] Pulse Rate [Sitting (for 1 minute prior to obtaining)] Pulse Rate [Standing (for 1 minute prior to obtaining)] Respiratory Rate 17 17 Respiratory Effort Respiratory Pattern Blood Pressure 134/68 H 129/69 H Blood Pressure [Lying] Blood Pressure [Sitting (for 1 minute prior to obtaining)] Blood Pressure [Standing (for 1 minute prior to obtaining)] Blood Pressure Mean 88 89 Blood Pressure Mean [Lying] Blood Pressure Mean [Sitting (for 1 minute prior to obtaining)] Blood Pressure Mean [Standing (for 1 minute prior to obtaining)] Pulse Ox 95 Oxygen Delivery Method MDM MDM MDM Narrative Medical decision making narrative: Patient is a 84-year-old male who presents to the emergency department chief complaint of syncope. On the differential diagnose includes but not limited to vasovagal syncope, dehydration, ACS, pneumothorax, intracranial hemorrhage, cervical spine fracture. Once workup is obtained reviewed he will be reevaluated. Patient be given IV fluids for hydration. Patient had orthostatic vital signs obtained here and was positive. Patient CBC was reviewed and showed a white blood count 11,000, hemoglobin 15.6, platelet count was noted be 320. Patient sodium was 134, potassium 4.2, creatinine was 1.74 he has some underlying chronic kidney disease with his normal being around 1.48. Patient's troponin was noted to be normal at 7 with a delta troponin obtained normal at 7. Patient's EKG reviewed and showed a atrial sensed ventricular paced rhythm with a rate of 100 bpm no Sgarbossa criteria were met. Patient's TSH normal at 2.25, free T4 and free T3 normal at 1.19 and 2.8 respectively. Patient's urinalysis was reviewed and showed no evidence of infection. Patient's chest x-ray reviewed by myself and by radiology showed no acute cardiopulmonary processes COPD noted. After 2 L of IV fluids patient was reevaluated and orthostatic vital signs repeated they were normal. Patient ambulated well here in the emerged part without any evidence of hypotension tachycardia or hypoxia. Did discuss with [facility] who reviewed the pacemaker interrogation and states that he had atrial tachycardia no other acute abnormalities identified. Patient would like to go home he was encouraged to hydrate orally with water and cut back on the amount of coffee he is drinking. He is encouraged to follow-up department care physician outpatient setting. He was advised to return with worsening symptoms and concerns. He is agreeable this plan as well as family member bedside all question concerns answered was discharged home in stable condition. Lab Data Labs: Laboratory Results - last 24 hr 11/14/24 11/14/24 11/14/24 17:12 19:02 19:14 WBC 11.3 H RBC 5.28 Hgb 15.6 Hct 46.0 MCV 87.1 MCH 29.5 MCHC 33.9 RDW Std Deviation 43.7 RDW Coeff of Cuco 13.6 Plt Count 320 MPV 9.9 Immature Gran % (Auto) 0.400 Neut % (Auto) 81.7 H Lymph % (Auto) 8.8 L Mchenry % (Auto) 7.9 Eos % (Auto) 0.5 Baso % (Auto) 0.7 Absolute Neuts (auto) 9.3 H Absolute Lymphs (auto) 1.00 Nucleated RBC % 0 Sodium 134 L Potassium 4.2 Chloride 102 Carbon Dioxide 24.0 Anion Gap 8 BUN 25 H Creatinine 1.74 H Estim Creat Clear Calc 29.90 Est GFR (MDRD) Af Amer 48 L Est GFR (MDRD) Non-Af 40 L BUN/Creatinine Ratio 14.4 Glucose 156 H Calcium 9.2 Troponin I High Sens 7 7 TSH 2.250 Free T4 1.19 Free T3 pg/dL 2.8 Urine Color Yellow Urine Clarity Clear Urine pH 6.0 Ur Specific [place] 1.010 Urine Protein Negative Urine Glucose (UA) Normal Urine Ketones Negative Urine Occult Blood Negative Urine Nitrite Negative Urine Bilirubin Negative Urine Urobilinogen Normal Ur Leukocyte Esterase Negative Urine RBC 0 SEEN Urine WBC 0 SEEN Ur Squamous Epith Cells 0 SEEN Urine Bacteria 0 SEEN Urine Mucus 0 SEEN Radiography Diagnostic Testing: Clinical Impression(s) from Imaging Studies Brain CT 11/14/24 17:34 IMPRESSION: Chronic involutional changes of the brain. Electronically Signed: Maurice Faith MD at 18:17 EST , Cervical Spine CT 11/14/24 17:34 IMPRESSION: Multilevel degenerative changes, as described above. Electronically Signed: Maurice Faith MD at 18:26 EST , Chest X-Ray 11/14/24 17:35 IMPRESSION: No acute abnormalities. COPD. Electronically Signed: Shankar Augustin MD at 18:43 EST , Discharge Plan Triage Chief Complaint: Syncope ED Provider: Aniceto Garland Dx/Rx/DC Orders Clinical Impression: Dehydration, Syncope Prescriptions: No Action aspirin [Adult Aspirin Regimen] 81 mg tablet,delayed release (DR/EC) 81 mg PO DAILY acetaminophen 325 mg tablet 325 mg PO Q6H PRN (Reason: pain) atorvastatin 40 mg tablet 40 mg PO QHS lisinopril-hydrochlorothiazide 20-25 mg tablet 1 tab PO DAILY Patient Comments: Take 1 tablet by mouth every morning. nifedipine 60 mg tablet extended release 60 mg PO BID ezetimibe [Zetia] 10 mg tablet 10 mg PO DAILY Qty: 90 3RF Primary Care Provider: Hayden Townsend Referrals: Hayden Townsend MD [Primary Care Provider] - Activity Restrictions/Additional Instructions: Ensure adequate hydration with water as we discussed here in the emergency department. Follow-up with your primary care physician outpatient setting. Return with worsening symptoms or any concerns. Print Language: Maori Disposition Disposition: Home, Self Care
--- NOTE | 2024-11-14 17:34 | CT_ITS ---
STUDY: CT BRAIN WITHOUT CONTRAST REASON FOR EXAM: Male, 84 years old. Fall RADIATION DOSAGE (If Supplied By Facility): CTDIvol = ( 44.99 ) mGy, DLP = ( 779.24 ) mGycm TECHNIQUE: Transaxial CT imaging of the brain was performed without administration of intravenous contrast material. Individualized dose optimization techniques were used for this CT. COMPARISON: March 07, 2017 FINDINGS: Normal soft tissue structures. Normal calvarium. There is mild cerebral atrophy with widening of the extra-axial spaces and ventricular dilatation. There are areas of decreased attenuation within the white matter tracts of the supratentorial brain, consistent with microvascular disease changes. Normal basal ganglia and thalami. Normal brainstem. Normal cerebellum. There is no intracranial hemorrhage. There are no findings of an acute ischemic infarction. Normal visualized paranasal sinuses. CT/Brain/Head without Contrast IMPRESSION: Chronic involutional changes of the brain. Electronically Signed: Maurice Faith MD at 18:17 EST ,
--- NOTE | 2024-11-14 17:34 | CT_ITS ---
STUDY: CT CERVICAL SPINE WITHOUT CONTRAST REASON FOR EXAM: Male, 84 years old. Fall RADIATION DOSAGE (If Supplied By Facility): CTDIvol = ( 19.65 ) mGy, DLP = ( 420.83 ) mGycm TECHNIQUE: High resolution transaxial imaging was performed without contrast material. Sagittal and coronal images were reconstructed. Individualized dose optimization techniques were used for this CT. COMPARISON: None FINDINGS: Normal craniovertebral junction. There are degenerative changes of the anterior atlantoaxial articulation. Normal odontoid process. Normal cervical lordosis. Normal vertebral bodies and posterior osseous elements. C2-3: Anterior spurring. Facet spurring on the left more than the right. Normal central canal and intervertebral neuroforamina. C3-4: Disc space narrowing with endplate change. Disc bulge and spurring to the left. Facet spurring. Moderate canal stenosis. Left foraminal narrowing. C4-5: Disc bulge and spurring. Facet spurring on the left more than the right. No canal stenosis. Left foraminal narrowing. C5-6: Disc space narrowing. Spurring. Mild facet spurring. No canal stenosis. Left greater than right foraminal narrowing. C6-7: Disc space narrowing with endplate change. Spurring. Mild facet spurring. No canal stenosis. Bilateral foraminal narrowing. C7-T1: There is grade 1 anterolisthesis. Mild spurring. Facet spurring. No canal stenosis. Neural foramina are patent. Normal visualized soft tissue structures. CT/Spine Cervical without Contras IMPRESSION: Multilevel degenerative changes, as described above. Electronically Signed: Maurice Faith MD at 18:26 EST ,
--- NOTE | 2024-11-14 17:35 | RAD_ITS ---
INDICATION: syncope EXAMINATION/TECHNIQUE: X-RAY - XR Chest 2 Views COMPARISON: 11/14/2022. FINDINGS: Chronic lung changes. No definite acute lung findings. Tortuous and calcified thoracic aorta. The heart is not enlarged. Left-sided cardiac device. No pleural effusion or pneumothorax. Degenerative changes of the thoracic spine. RAD/Chest PA and Lateral IMPRESSION: No acute abnormalities. COPD. Electronically Signed: Shankar Augustin MD at 18:43 EST ,
[2024-11-14 17:41] LABS: Anion Gap 8 (5-15); BUN 25 mg/dL (7-18); BUN/Creat Ratio 14.4 RATIO (10-20); Calcium,Total 9.2 mg/dL (8.5-10.1); Chloride 102 mmol/L (98-107); Creatinine, Serum 1.74 mg/dL (0.70-1.30); EST Glomerular Filtration Rate 40 mL/min (>60); Est Glom Filt Rate - Afr Amer 48 mL/min (>60); Glucose 156 mg/dL (74-106); Potassium 4.2 mmol/L (3.5-5.1); Sodium Level 134 mmol/L (136-145); Troponin-I HS (w/2H Reflex) 7 pg/mL (3.0-78.0)
[2024-11-14 18:43] LABS: Free T3 2.8 pg/mL (2.18-3.98); T4 Free Direct 1.19 ng/dL (0.76-1.46)
[2024-11-14 19:10] LABS: Bacteria 0 SEEN /hpf (None Seen); Mucous, Urine 0 SEEN /hpf (<or=2+); Red Blood Cells-Urine 0 SEEN /hpf (0-5); Squamous Epithelial Cells - UA 0 SEEN /hpf (0-5); White Blood Cells 0 SEEN /hpf (0-5)
[2024-11-14 19:19] LABS: Reflex Troponin-HS? (from REC) Y
[2024-11-14 19:26] LABS: Color, Urine Yellow (Yellow); Glucose, Dipstick Normal (Normal); Ketone-Dipstick Negative (Negative); Leukocyte Esterase-Dipstick Negative /ul (Negative); Nitrite-Dipstick Negative (Negative); Occult Blood-Urine Negative /ul (Negative); Protein-Dipstick Negative (Negative); Urine Bilirubin Dipstick Negative (Negative); Urine Clarity Clear (Clear); Urine Urobilinogen Normal (Normal)
[2024-11-14 20:03] LABS: Troponin-I HS 7 pg/mL (3.0-78.0)
== END 2024-11-14 22:00 | disposition home or self-care (01) ==
PROVIDERS: Emergency Provider Emergency Medicine; PCP Family Medicine; Visit Provider Emergency Medicine
DX: E86.0 Dehydration (principal); R55 Syncope and collapse; I12.9 Hypertensive chronic kidney disease with stage 1 through stage 4 chronic kidney disease, or unspecified chronic kidney disease; E78.5 Hyperlipidemia, unspecified; N18.9 Chronic kidney disease, unspecified; Z79.82 Long term (current) use of aspirin; Z79.899 Other long term (current) drug therapy; Z87.891 Personal history of nicotine dependence; E05.00 Thyrotoxicosis with diffuse goiter without thyrotoxic crisis or storm; Z95.0 Presence of cardiac pacemaker
CPT/HCPCS: 70450; 71046; 72125; 80048; 81001; 84439; 84443; 84481; 84484; 85025; 87086; 93005; 93288; 96360; 96361; 99285; A4216